=== PATIENT | male | born 1940 | race Caucasian/White ===

== ENCOUNTER → 2018-07-22 12:51 | Outpatient (CLI) | payer MEDICARE, SELFPAY ==
--- NOTE | 2018-07-22 12:54 | ECHOCS_ITS ---
Reason For Study: Afib/Flutter Procedure This was a 2D Doppler, Color Flow transthoracic echocardiogram. The study was technically difficult. Contrast injection was performed. Exam performed in department. Left Ventricle Normal LV size. Mild concentric left ventricular hypertrophy. Left ventricular systolic function is normal. The estimated ejection fraction is 53 %. Unable to assess diastolic dysfunction due to arrhythmia. No regional wall motion abnormalities noted. Right Ventricle Moderately dilated right ventricle. Moderate global right ventricular systolic dysfunction. Atria The left atrium is moderately enlarged. The right atrium is moderately enlarged. Mitral Valve Normal mitral valve. Mild-Moderate (1-2+) eccentric mitral valve insufficiency. Tricuspid Valve Normal tricuspid valve. Mild (1+) tricuspid valve insufficiency. Pulmonary artery systolic pressure is 36 mmHg. Aortic Valve Normal aortic valve. Trisinus/trileaflet aortic valve. Pulmonic Valve Normal pulmonic valve. Mild (1+) pulmonic valve insufficiency. Great Vessels Normal aortic root. The pulmonary artery is normal size. Normal inferior vena cava. Pericardium/Pleural No pericardial effusion. Medication 20 gauge I.V. with prn adaptor inserted into right arm. Diluted definity 6ml given slow IV push to enhance endocardial definition. MMode/2D Measurements & Calculations LVIDd: 4.5 cm IVSd: 1.3 cm LVOT diam: 2.0 cm LVIDs: 3.1 cm LVPWd: 1.2 cm LVOT area: 3.0 cm2 RVDd: 4.8 cm FS: 30.1 % Ao root diam: 3.9 cm LAV(MOD-bp): 114.5 ml LA dimension: 5.0 cm LAV(MOD-bp) Indexed: 52.7 ml/m2 LA A4 area: 29.6 cm2 LAV(MOD-sp2): 118.2 ml LAV(MOD-sp4): 106.7 ml RA A4 area: 28.8 cm2 Time Measurements MV dec time: 0.18 sec Doppler Measurements & Calculations MV E max yobani: 70.2 cm/sec Lat Peak E' Yobani: 10.0 cm/sec Med Peak E' Yobani: 7.1 cm/sec E/E' lat: 7.0 E/E' med: 9.8 MV V2 max: 76.1 cm/sec Ao V2 max: 85.5 cm/sec LV V1 max: 58.9 cm/sec MV max P.3 mmHg Ao max P.9 mmHg LV V1 max P.4 mmHg MV V2 mean: 35.8 cm/sec MIREYA(V,D): 2.1 cm2 MV mean P.65 mmHg MV V2 VTI: 15.2 cm MR max yobani: 543.5 cm/sec PA V2 max: 50.6 cm/sec PI dec slope: 149.4 cm/sec2 MR max P.2 mmHg MR mean yobani: 407.4 cm/sec MR mean P.6 mmHg MR VTI: 172.6 cm TR max yobani: 283.3 cm/sec TR max P.2 mmHg Interpretation Summary Normal LV size. Mild concentric left ventricular hypertrophy. Left ventricular systolic function is normal. The estimated ejection fraction is 53 %. Unable to assess diastolic dysfunction due to arrhythmia. Moderately dilated right ventricle. Moderate global right ventricular systolic dysfunction. Pulmonary artery systolic pressure is 36 mmHg. Compared to the previous the RV is enlarged. Contrast injection was performed. Ordering Physician: Joshua Bates Referring Physician: Joshua Bates Performed By: Aris Lafleur RCS
== END ==
PROVIDERS: Family Provider Family Medicine; PCP Family Medicine; Referring Provider Internal Medicine Cardiovascular Disease; Visit Provider Internal Medicine Cardiovascular Disease
DX: I48.1 Persistent atrial fibrillation (principal)
CPT/HCPCS: 93306; Q9957; A4216; C8929

== ENCOUNTER → 2019-01-12 14:07 | Outpatient (CLI) | payer MEDICARE, SELFPAY ==
[2019-01-12 13:20] VITALS: BMI 32.1
[2019-01-12 14:15] LABS: Bacteria 0 SEEN /hpf (None Seen); Mucous, Urine 0 SEEN /hpf (<or=2+); Red Blood Cells-Urine 0 SEEN /hpf (0-5); Squamous Epithelial Cells - UA 0 SEEN /hpf (0-5); White Blood Cells 0 SEEN /hpf (0-5)
[2019-01-12 15:48] LABS: Absolute Lymphocyte Count 1.26 X10^3/ul (0.83-4.51); Absolute Neutrophil Count 3.6 X10^3/uL (2.0-7.7); Basophil# 0.03 X10^3/uL; Basophil% 0.5 % (0-1); Eosinophil# 0.37 X10^3/uL; Hematocrit 47.7 % (40-54); Hemoglobin 16.3 g/dl (13.0-16.5); Lymphocyte # 1.26 X10^3/ul (4.0); Lymphocyte % 20.4 % (19-41); Mean Corp Hgb Conc 34.2 g/gl (32-36); Mean Corpuscular Hgb 32.3 pg (27.0-32.0); Mean Corpuscular Volume 94.6 fL (80-94); Mean Platelet Vol. 10.9 fl (6.2-12.0); Monocyte# 0.92 X10^3/uL; Monocyte% 14.9 % (0-10); Neutrophil % 58.2 % (47-70); POSITIVE COUNT NO; POSITIVE DIFFERENTIAL NO; POSITIVE MORPHOLOGY NO; Platelet Count 200 K/mm3 (150-450); RBC Distribution Width SD 48.1 fl (35.1-43.9); Red Blood Count 5.04 M/mm3 (4.6-6.2); White Blood Count 6.2 K/mm3 (4.4-11.0)
[2019-01-12 16:24] LABS: Anion Gap 9 (5-15); BUN 14 mg/dL (7-18); BUN/Creat Ratio 10.4 RATIO (10-20); Calcium,Total 9.1 mg/dL (8.5-10.1); Chloride 107 mmol/L (98-107); Creatinine, Serum 1.34 mg/dL (0.70-1.30); EST Glomerular Filtration Rate 54 mL/min (>60); Est Glom Filt Rate - Afr Amer 66 mL/min (>60); Glucose 71 mg/dL (74-106); Potassium 3.7 mmol/L (3.5-5.1); Sodium Level 143 mmol/L (136-145)
[2019-01-12 16:30] LABS: BNP,B-Type NATRIURETIC PEPTIDE 148.2 pg/mL (0-100)
[2019-01-12 16:39] LABS: Color, Urine Yellow (Yellow); Glucose, Dipstick Normal (Normal); Ketone-Dipstick Negative (Negative); Leukocyte Esterase-Dipstick 25 /ul (Negative); Nitrite-Dipstick Negative (Negative); Occult Blood-Urine Negative /ul (Negative); Protein-Dipstick Negative (Negative); Urine Bilirubin Dipstick Negative (Negative); Urine Clarity Clear (Clear); Urine Urobilinogen Normal (Normal)
== END ==
PROVIDERS: Family Provider Family Medicine; PCP Family Medicine; Referring Provider Nurse Practitioner Family; Visit Provider Nurse Practitioner Family
DX: I10 Essential (primary) hypertension (principal); R06.09 Other forms of dyspnea; R35.0 Frequency of micturition
CPT/HCPCS: 36415; 80048; 81001; 83880; 85025

== ENCOUNTER → 2019-02-03 09:23 | Outpatient (CLI) | payer MEDICARE, SELFPAY ==
[2019-01-12 13:20] VITALS: BMI 32.1
[2019-02-03 10:20] LABS: Anion Gap 6 (5-15); BUN 21 mg/dL (7-18); Calcium,Total 9.3 mg/dL (8.5-10.1); Chloride 103 mmol/L (98-107); EST Glomerular Filtration Rate 52 mL/min (>60); Est Glom Filt Rate - Afr Amer 63 mL/min (>60); Glucose 113 mg/dL (74-106); Potassium 3.2 mmol/L (3.5-5.1); Sodium Level 141 mmol/L (136-145)
== END ==
PROVIDERS: Nurse Practitioner Family; Family Provider Family Medicine; PCP Family Medicine; Referring Provider Internal Medicine Cardiovascular Disease; Visit Provider Internal Medicine Cardiovascular Disease
DX: I48.1 Persistent atrial fibrillation (principal)
CPT/HCPCS: 36415; 80048

== ENCOUNTER → 2019-02-22 09:32 | Outpatient (CLI) | payer MEDICARE, SELFPAY ==
[2019-01-12 13:20] VITALS: BMI 32.1
[2019-02-22 11:16] LABS: Anion Gap 6 (5-15); BUN 21 mg/dL (7-18); BUN/Creat Ratio 14.9 RATIO (10-20); Calcium,Total 9.1 mg/dL (8.5-10.1); Chloride 105 mmol/L (98-107); Creatinine, Serum 1.41 mg/dL (0.70-1.30); EST Glomerular Filtration Rate 51 mL/min (>60); Est Glom Filt Rate - Afr Amer 62 mL/min (>60); Glucose 91 mg/dL (74-106); Potassium 3.5 mmol/L (3.5-5.1); Sodium Level 144 mmol/L (136-145)
== END ==
PROVIDERS: Family Provider Family Medicine; PCP Family Medicine; Referring Provider Nurse Practitioner Family; Visit Provider Nurse Practitioner Family
DX: E87.6 Hypokalemia (principal)
CPT/HCPCS: 36415; 80048

== ENCOUNTER → 2019-03-08 09:18 | Outpatient (CLI) | payer MEDICARE, SELFPAY ==
[2019-01-12 13:20] VITALS: BMI 32.1
== END ==
PROVIDERS: Family Provider Family Medicine; PCP Family Medicine; Referring Provider Physician Assistant Medical; Visit Provider Physician Assistant Medical
DX: R00.0 Tachycardia, unspecified (principal)
CPT/HCPCS: 93225; 93226

== ENCOUNTER → 2019-04-16 14:17 | Outpatient (CLI) | payer MEDICARE, SELFPAY ==
[2019-01-12 13:20] VITALS: BMI 32.1
[2019-04-16 15:11] LABS: Absolute Lymphocyte Count 1.25 X10^3/ul (0.83-4.51); Absolute Neutrophil Count 3.4 X10^3/uL (2.0-7.7); Basophil# 0.02 X10^3/uL; Basophil% 0.3 % (0-1); Eosinophil# 0.44 X10^3/uL; Eosinophils% 7.5 % (0-5); Hematocrit 45.6 % (40-54); Hemoglobin 15.6 g/dl (13.0-16.5); Lymphocyte # 1.25 X10^3/ul (4.0); Lymphocyte % 21.4 % (19-41); Mean Corp Hgb Conc 34.2 g/gl (32-36); Mean Corpuscular Hgb 32.3 pg (27.0-32.0); Mean Corpuscular Volume 94.4 fL (80-94); Mean Platelet Vol. 10.1 fl (6.2-12.0); Monocyte# 0.72 X10^3/uL; Monocyte% 12.3 % (0-10); Neutrophil # 3.41 X10^3/uL (2.7-7.7); Neutrophil % 58.3 % (47-70); Platelet Count 204 K/mm3 (150-450); RBC Distribution Width CV 14.7 % (11.6-14.6); RBC Distribution Width SD 49.3 fl (35.1-43.9); Red Blood Count 4.83 M/mm3 (4.6-6.2); White Blood Count 5.9 K/mm3 (4.4-11.0)
[2019-04-16 15:15] LABS: Anion Gap 7 (5-15); BUN 18 mg/dL (7-18); BUN/Creat Ratio 13.8 RATIO (10-20); Calcium,Total 8.8 mg/dL (8.5-10.1); Chloride 110 mmol/L (98-107); EST Glomerular Filtration Rate 56 mL/min (>60); Est Glom Filt Rate - Afr Amer 68 mL/min (>60); Glucose 64 mg/dL (74-106); Potassium 4.2 mmol/L (3.5-5.1); Sodium Level 144 mmol/L (136-145)
[2019-04-16 15:25] LABS: BNP,B-Type NATRIURETIC PEPTIDE 112.3 pg/mL (0-100)
[2019-04-16 15:40] LABS: POSITIVE COUNT NO; POSITIVE DIFFERENTIAL NO; POSITIVE MORPHOLOGY NO
== END ==
PROVIDERS: Family Provider Family Medicine; PCP Family Medicine; Referring Provider Nurse Practitioner Family; Visit Provider Nurse Practitioner Family
DX: R06.09 Other forms of dyspnea (principal); I48.1 Persistent atrial fibrillation; I10 Essential (primary) hypertension; E78.5 Hyperlipidemia, unspecified
CPT/HCPCS: 36415; 80048; 83880; 85025

== ENCOUNTER 2020-10-26 14:41 | Outpatient (RCR) | payer MEDICARE, SELFPAY ==
[2020-06-19 14:24] VITALS: BMI 32.3
== END 2020-10-26 23:59 ==
LOC: IMMUN 14:41
PROVIDERS: PCP Family Medicine; Visit Provider Family Medicine
DX: Z23 Encounter for immunization (principal)
CPT/HCPCS: 0011A; 0012A; 91301

== ENCOUNTER → 2021-01-10 09:46 | Outpatient (CLI) | payer MEDICARE, SELFPAY ==
[2020-12-29 10:45] VITALS: BMI 31.1
== END ==
PROVIDERS: PCP Family Medicine; Referring Provider Nurse Practitioner Family; Visit Provider Nurse Practitioner Family
DX: R55 Syncope and collapse (principal); R42 Dizziness and giddiness; I48.19 Other persistent atrial fibrillation
CPT/HCPCS: 93225; 93226

== ENCOUNTER → 2021-01-16 11:24 | Outpatient (CLI) | payer MEDICARE, SELFPAY ==
[2021-01-16 10:47] VITALS: BMI 30.8
[2021-01-16 13:36] LABS: Anion Gap 5 (5-15); BUN 15 mg/dL (7-18); BUN/Creat Ratio 11.4 RATIO (10-20); Calcium,Total 9.6 mg/dL (8.5-10.1); Chloride 106 mmol/L (98-107); Creatinine, Serum 1.32 mg/dL (0.70-1.30); EST Glomerular Filtration Rate 55 mL/min (>60); Est Glom Filt Rate - Afr Amer 67 mL/min (>60); Glucose 76 mg/dL (74-106); Potassium 4.2 mmol/L (3.5-5.1); Sodium Level 141 mmol/L (136-145)
== END ==
PROVIDERS: PCP Family Medicine; Referring Provider Internal Medicine Cardiovascular Disease; Visit Provider Internal Medicine Cardiovascular Disease
DX: I48.19 Other persistent atrial fibrillation (principal)
CPT/HCPCS: 36415; 80048

== ENCOUNTER → 2021-02-05 12:59 | Outpatient (CLI) | payer MEDICARE, SELFPAY ==
[2021-01-16 10:47] VITALS: BMI 30.8
--- NOTE | 2021-02-05 13:02 | ECHOCS_ITS ---
Reason For Study: Afib, Aflutter Procedure This was a 2D Doppler, Color Flow transthoracic echocardiogram. Contrast injection was performed. Exam performed in department. Left Ventricle Normal LV size. Mild concentric left ventricular hypertrophy. Left ventricular systolic function is normal. The estimated ejection fraction is 65 %. No regional wall motion abnormalities noted. Right Ventricle Normal RV size. Normal systolic function. Atria The left atrium is moderately enlarged. The right atrium is mildly enlarged. Mitral Valve Normal mitral valve. Tricuspid Valve Normal tricuspid valve. Mild (1+) tricuspid valve insufficiency. Pulmonary artery systolic pressure is 32 mmHg. Aortic Valve Trisinus/trileaflet aortic valve. Pulmonic Valve Normal pulmonic valve. Great Vessels Normal aortic root. The pulmonary artery is normal size. Normal inferior vena cava. Pericardium/Pleural No pericardial effusion. Medication Diluted definity 4ml given slow IV push to enhance endocardial definition. MMode/2D Measurements & Calculations LVIDd: 3.8 cm IVSd: 1.3 cm Ao root diam: 3.5 cm LVIDs: 2.7 cm LVPWd: 1.2 cm RVDd: 4.2 cm FS: 28.6 % LAV(MOD-bp): 107.1 ml LVAd ap4: 29.8 cm2 SV(MOD-sp4): 47.3 ml LAV(MOD-bp) Indexed: 50.5 ml/m2 LVLd ap4: 7.8 cm LAV(MOD-sp2): 91.0 ml EDV(MOD-sp4): 97.8 ml LAV(MOD-sp4): 113.7 ml EDV(sp4-el): 96.7 ml LVAs ap4: 20.6 cm2 LVLs ap4: 7.4 cm ESV(MOD-sp4): 50.4 ml ESV(sp4-el): 48.8 ml EF(MOD-sp4): 48.4 % EF(sp4-el): 49.5 % SV(sp4-el): 47.8 ml LA A4 area: 31.6 cm2 LA dimension(2D): 4.7 cm RA A4 area: 25.3 cm2 Doppler Measurements & Calculations MV E max bryce: 74.4 cm/sec Ao V2 max: 92.7 cm/sec LV V1 max: 57.1 cm/sec Ao max P.4 mmHg LV V1 max P.3 mmHg Ao V2 mean: 72.5 cm/sec Ao mean P.2 mmHg Ao V2 VTI: 14.1 cm PA V2 max: 61.8 cm/sec TR max bryce: 265.8 cm/sec TR max P.3 mmHg ECHO/Echo Complete W/ Contrast Interpretation Summary Normal LV size. Mild concentric left ventricular hypertrophy. Left ventricular systolic function is normal. The left atrium is moderately enlarged. Contrast injection was performed. Ordering Physician: Joshua Bates Referring Physician: Navneet Alvarado Performed By: Kelli Ingram, VARUN, RVT
== END ==
PROVIDERS: PCP Family Medicine; Referring Provider Internal Medicine Cardiovascular Disease; Visit Provider Internal Medicine Cardiovascular Disease
DX: I48.19 Other persistent atrial fibrillation (principal); I48.92 Unspecified atrial flutter
CPT/HCPCS: 93306; Q9957; A4216; C8929

== ENCOUNTER 2021-03-25 11:57 | Inpatient (IN) | payer MEDICARE, SELFPAY ==
[2021-01-16 10:47] VITALS: BMI 30.8
[2021-03-25] VITALS (26 sets, daily range): BP systolic 97–155; BP diastolic 59–112; PULSE 61–125; RESP 17–25; TEMP 36.3–37.3; O2SAT 92–98; BMI 31.1; BMI 30.7
--- NOTE | 2021-03-25 12:14 | CT_ITS ---
STUDY: CT BRAIN WITHOUT CONTRAST REASON FOR EXAM: Male, 81 years old. Confusion, fall RADIATION DOSAGE (If Supplied By Facility): CTDIvol = ( 44.99 ) mGy, DLP = ( 863.60 ) mGycm TECHNIQUE: Transaxial CT imaging of the brain was performed without administration of intravenous contrast material. Individualized dose optimization techniques were used for this CT. COMPARISON: March 21, 2012 FINDINGS: Normal soft tissue structures. Normal calvarium. There is moderate cerebral atrophy with widening of the extra-axial spaces and ventricular dilatation. There are areas of decreased attenuation within the white matter tracts of the supratentorial brain, consistent with microvascular disease changes. Normal basal ganglia and thalami. Normal brainstem. Normal cerebellum. There is no intracranial hemorrhage. There are no findings of an acute ischemic infarction. Mucosal thickening with retention cysts or polyps of the right maxillary sinus CT/Brain/Head without Contrast IMPRESSION: Chronic involutional changes of the brain. Electronically Signed: Amadou Deal MD at 14:54 EDT , Service support ,
--- NOTE | 2021-03-25 12:15 | RAD_ITS ---
HISTORY: low bp EXAMINATION/TECHNIQUE: XR Chest 1 View: Portable upright AP chest x-ray COMPARISON: 04/18/14 FINDINGS: LINES/DEVICES: None. LUNGS: Increasing elevation right hemidiaphragm with overall low lung volumes. No consolidation or pleural effusion. MEDIASTINUM AND CARDIOVASCULAR STRUCTURES: Cardiac silhouette not enlarged. Central airways and mediastinal contour are unremarkable. BONES AND SOFT TISSUES: No acute bony abnormalities. RAD/Chest 1 View (Portable) IMPRESSION: No radiographic evidence of acute cardiopulmonary disease. at 1540 Reported and signed by: Conrad Randolph MD Electronically Signed: Conrad Randolph MD at 15:39 EDT Tel , Service support ,
--- NOTE | 2021-03-25 12:15 | EKG12_ITS ---
Test Reason : Blood Pressure : / mmHG Vent. Rate : 124 BPM Atrial Rate : 248 BPM P-R Int : 000 ms QRS Dur : 092 ms QT Int : 396 ms P-R-T Axes : 000 008 -58 degrees QTc Int : 568 ms Atrial flutter with variable A-V block with premature ventricular or aberrantly conducted complexes Nonspecific ST and T wave abnormality Abnormal ECG Confirmed by ADEBAYO MIX, AMBER ([id number]), editorial cartoonist ALINE ZAMORA ([id number]) on 03/26/2021 11:19:28 AM Referred By: MARY CARMEN Confirmed By:AMBER FIORE MD
--- NOTE | 2021-03-25 12:27 | EDS_ITS ---
HPI History of Present Illness Chief Complaint: Confusion Onset/Context/Timing Onset: Yesterday Context: Gradual Onset Timing: Continuous Quality: Confusion Current Severity: Moderate Maximum Severity: Moderate Narrative Narrative: noticed patient was confused yesterday evening. He has been having urinary urgency for about the past week, he had a kidney infection prior to that, and a repeat urinalysis almost 1 week ago that they were told was negative. Overnight after noticed he was disoriented more than usual, he has dementia, he had a fall in the middle of the night. She does not think he injured anything, but he continues to be persistently confused today. [facility] Medical History (Updated 03/25/21 @ 15:[address] Amadou Kerns MD) Atrial fibrillation Body mass index (bmi) 29.0-29.9, adult Bradycardia Depression Essential (primary) hypertension Hyperlipidemia Hypertension Hyperthyroidism Obesity Persistent atrial fibrillation Right ventricular dilation, secondary Right ventricular systolic dysfunction Syncope TIA (transient ischemic attack) Vascular dementia Home Medications mirtazapine 30 mg tablet 30 mg PO QHS 12/15/17 [History Last Taken Unknown] cholecalciferol (vitamin D3) 50 mcg (2,000 unit) capsule 2,000 unit PO DAILY 07/14/18 [History Last Taken Unknown] potassium chloride 20 mEq tablet,extended release 40 meq PO DAILY #90 tab 02/24/19 [Rx Last Taken Unknown] citalopram 40 mg tablet 40 mg PO DAILY #1 tab 03/02/19 [Rx Last Taken Unknown] compression stockings #2 ea 04/16/19 [Rx Last Taken Unknown] diltiazem HCl 180 mg capsule,extended release 24 hr 180 mg PO DAILY #90 cap 11/22/20 [Rx Last Taken Unknown] famotidine 10 mg tablet 10 mg PO DAILY PRN 12/29/20 [History Last Taken Unknown] memantine 10 mg tablet 10 mg PO BID tablet 12/29/20 [History Last Taken Unknown] apixaban 5 mg tablet 5 mg PO BID #180 tab 01/15/21 [Rx Last Taken Unknown] cyanocobalamin (vitamin B-12) [Vitamin B-12] 1,000 mcg PO DAILY 03/25/21 [History Last Taken Unknown] metoprolol succinate 100 mg PO DAILY 03/25/21 [History Last Taken Unknown] Allergy/AdvReac Type Severity Reaction Status Date / Time amiodarone AdvReac Severe Hyperthyroi Verified 03/25/21 11:58 dism Family History Mother Diabetes CVA (cerebral vascular accident) Father Myocardial infarction CAD (coronary artery disease) Sister Diabetes Son Hypertension Daughter Thyroid disorder hyperthyroid Diabetes Daughter Diabetes Daughter Thyroid disorder hypothyroid Surgical History History of hemorrhoidectomy History of tonsillectomy and adenoidectomy Social History Smoking Status: Never smoker how long ago did patient quit smokin alcohol intake: current alcohol intake frequency: holidays/special occasions only Alcohol type: wine substance use type: does not use caffeine: Yes Type: coffee Number of servings: 3 what type of physical activity do you participate in: none seatbelt use: always do you feel safe at home: Yes ROS ROS ED Review of Systems ROS Unobtainable: due to mental status and other Details: very confused, but follows commands Constitutional Constitutional ED: Denies chills or fever(s) Eyes Eyes: Denies change in vision or diplopia ENT ENT ED: Denies rhinorrhea or sore throat Cardiovascular Cardiovascular: Denies chest pain or palpitations Respiratory/Chest Respiratory/Chest: Denies cough or dyspnea Gastrointestinal Gastrointestinal: Denies abdominal pain, diarrhea, nausea or vomiting Genitourinary Genitourinary ED: Denies dysuria or hematuria Musculoskeletal Musculoskeletal: Denies back pain or neck pain Integumentary Denies abscess or rash Neurologic Neurologic: Denies headache(s), paresthesias or weakness Psychiatric Psychiatric: Denies anxiety or suicidal thoughts EXAM Physical Exam Const Vital Signs: 03/25/21 11:59 03/25/21 12:15 03/25/21 14:52 Temperature 99.1 F 99.1 F Temperature Source Oral Oral Pulse Rate 125 H 125 H Respiratory Rate 18 Blood Pressure 97/73 Blood Pressure Mean 81 Pulse Ox 94 Oxygen Delivery Method Room Air Room Air Positive well nourished and well developed General Appearance ED: well developed and NAD HEENT Reports moist mucous membranes normocephalic and atraumatic Eyes PERRL and EOMs intact bilaterally Neck full ROM, no lymphadenopathy, supple and no JVD Chest Wall inspection of chest normal and palpation of chest normal Resp normal respiratory effort and clear to auscultation bilaterally Cardio regular rate, regular rhythm and no murmurs Rate: tachycardic GI non-tender and non-distended Auscultation: normoactive bowel sounds Palpation: soft Back/Spine no CVA tenderness General Back: other FROM Extremity normal to inspection General Extremety ED: Negative for edema, pulses abnormal or tenderness General Extremity: Negative for edema or pulses abnormal Neuro CN's II-XII intact bilaterally and no sensory deficits noted [place] Coma Scale: document GCS findings Spontaneous Obeys Commands Confused 14 Sensorium / Orientation: awake, alert, oriented to person and confused; Negative for oriented to place or oriented to time Motor Exam: strength 5/5 throughout Skin no rashes or lesions noted and no wounds MDM MDM MDM Narrative Medical decision making narrative: Patient appears to be in A. fib with RVR versus rapid a flutter. states he has a known history of that which I see in his medical records, and he is on Eliquis for that as well. The rest of his work-up is unremarkable including his urine which shows no evidence of infection. After IV fluids, his borderline hypotension resolved and I was able to give him Cardizem 10 mg bolus to try to slow his heart rate down which did not improve with the IV fluids. His heart rate did not improve, his blood pressure remained 118, so he was given another dose along with a Cardizem drip, my suspicion is that this a flutter/atrial fibrillation is related to his symptoms. Discussed with cardiology and hospitalist for admission. Lab Data Attestation: I reviewed the patient's lab results. Labs: Laboratory Results - last 24 hr 03/25/21 03/25/21 03/25/21 12:17 12:17 12:17 WBC 7.7 RBC 4.50 L Hgb 14.6 Hct 43.8 MCV 97.3 H MCH 32.4 H MCHC 33.3 RDW Std Deviation 47.4 H RDW Coeff of Monica 13.2 Plt Count 221 MPV 9.7 Immature Gran % (Auto) 0.300 Neut % (Auto) 77.5 H Lymph % (Auto) 8.2 L [place] % (Auto) 12.3 H Eos % (Auto) 1.3 Baso % (Auto) 0.4 Absolute Neuts (auto) 6.0 Absolute Lymphs (auto) 0.63 L Nucleated RBC % 0 PT INR APTT Sodium 141 Potassium 3.8 Chloride 107 Carbon Dioxide 27.0 Anion Gap 7 BUN 15 Creatinine 1.46 H Estim Creat Clear Calc 39.58 Est GFR (MDRD) Af Amer 59 L Est GFR (MDRD) Non-Af 49 L BUN/Creatinine Ratio 10.3 Glucose 94 Lactic Acid 1.8 Calcium 8.4 L Total Bilirubin 1.50 H AST 16 ALT 20 Alkaline Phosphatase 100 Troponin I 0.116 H Total Protein 6.6 Albumin 3.2 Globulin 3.4 Albumin/Globulin Ratio 0.9 Urine Color Urine Clarity Urine pH Ur Specific [place] Urine Protein Urine Glucose (UA) Urine Ketones Urine Occult Blood Urine Nitrite Urine Bilirubin Urine Urobilinogen Ur Leukocyte Esterase Urine RBC Urine WBC Ur Squamous Epith Cells Urine Bacteria Hyaline Casts Urine Mucus 03/25/21 03/25/21 13:42 13:52 WBC RBC Hgb Hct MCV MCH MCHC RDW Std Deviation RDW Coeff of Monica Plt Count MPV Immature Gran % (Auto) Neut % (Auto) Lymph % (Auto) [place] % (Auto) Eos % (Auto) Baso % (Auto) Absolute Neuts (auto) Absolute Lymphs (auto) Nucleated RBC % PT 17.0 H INR 1.5 APTT 36.3 H Sodium Potassium Chloride Carbon Dioxide Anion Gap BUN Creatinine Estim Creat Clear Calc Est GFR (MDRD) Af Amer Est GFR (MDRD) Non-Af BUN/Creatinine Ratio Glucose Lactic Acid Calcium Total Bilirubin AST ALT Alkaline Phosphatase Troponin I Total Protein Albumin Globulin Albumin/Globulin Ratio Urine Color Yellow Urine Clarity Clear Urine pH 6.5 Ur Specific [place] 1.010 Urine Protein 15 H Urine Glucose (UA) Normal Urine Ketones Negative Urine Occult Blood Negative Urine Nitrite Negative Urine Bilirubin Negative Urine Urobilinogen Normal Ur Leukocyte Esterase Negative Urine RBC 0 SEEN Urine WBC 0 SEEN Ur Squamous Epith Cells 0-5 SEEN Urine Bacteria RARE Hyaline Casts 0-5 SEEN Urine Mucus 0 SEEN Radiography Chest X-Ray - ED: 1 View, Read by ED Physician, Chronic Changes and No Infiltrates Diagnostic Testing: Radiology Impression Brain CT 03/25/21 12:14 IMPRESSION: Chronic involutional changes of the brain. Electronically Signed: Amadou Deal MD at 14:54 EDT , Service support , EKG Initial EKG: Attestation: I personally reviewed and interpreted this EKG as follows: Interpretation: No Acute Injury Pattern, Atrial Fibrillation (and/or aflutter w/ frequent vent ectopy) and Non-Specific ST Changes Prior EKG tracings: available for review Prior: Changed (nonspecific ST-T abn are different than prior; hx Afib) Discharge Plan Dx/Rx/DC Orders Clinical Impression: Atrial flutter with rapid ventricular response, Delirium due to another medical condition, Dementia Disposition Disposition: Acute Care Hospital [facility]
[2021-03-25 12:28] LABS: Absolute Lymphocyte Count 0.63 X10^3/uL (0.83-4.51); Basophil# 0.03 X10^3/uL; Basophil% 0.4 % (0-1); Eosinophils% 1.3 % (0-5); Hematocrit 43.8 % (40-54); Hemoglobin 14.6 g/dL (13.0-16.5); Lymphocyte # 0.63 X10^3/ul (0.83-4.51); Lymphocyte % 8.2 % (19-41); Mean Corp Hgb Conc 33.3 g/dL (32-36); Mean Corpuscular Hgb 32.4 pg (27.0-32.0); Mean Corpuscular Volume 97.3 fL (80-94); Mean Platelet Vol. 9.7 fl (6.2-12.0); Monocyte# 0.95 X10^3/uL; Monocyte% 12.3 % (0-10); NRBC Flagged by Analyzer 0 % (0-5); Neutrophil # 5.98 X10^3/uL (2.7-7.7); Neutrophil % 77.5 % (47-70); Platelet Count 221 K/mm3 (150-450); RBC Distribution Width CV 13.2 % (11.6-14.6); RBC Distribution Width SD 47.4 fl (35.1-43.9); White Blood Count 7.7 K/mm3 (4.4-11.0)
[2021-03-25 12:43] LABS: ALB/GLOB Ratio 0.9 RATIO (0.9-2.4); AST(SGOT) 16 U/L (15-37); Alanine Aminotransfer ALT/SGPT 20 U/L (16-61); Albumin, Serum 3.2 g/dL (3.2-5.0); Alkaline Phosphatase 100 U/L (45-117); Anion Gap 7 (5-15); BUN 15 mg/dL (7-18); BUN/Creat Ratio 10.3 RATIO (10-20); Calcium,Total 8.4 mg/dL (8.5-10.1); Chloride 107 mmol/L (98-107); Creatinine, Serum 1.46 mg/dL (0.70-1.30); EST Glomerular Filtration Rate 49 mL/min (>60); Est Glom Filt Rate - Afr Amer 59 mL/min (>60); Estimated Creatinine Clearance 39.58 ml/min; Globulin 3.4 g/dL (2.2-4.2); Glucose 94 mg/dL (74-106); Potassium 3.8 mmol/L (3.5-5.1); Protein, Total 6.6 g/dL (6.4-8.2); Sodium Level 141 mmol/L (136-145)
[2021-03-25 12:48] LABS: Lactic Acid 1.8 mmol/L (0.4-1.9)
[2021-03-25 14:01] LABS: Mucous, Urine 0 SEEN /hpf (<or=2+); Red Blood Cells-Urine 0 SEEN /hpf (0-5); White Blood Cells 0 SEEN /hpf (0-5)
[2021-03-25 14:03] LABS: Color, Urine Yellow (Yellow); Glucose, Dipstick Normal (Normal); Ketone-Dipstick Negative (Negative); Leukocyte Esterase-Dipstick Negative /ul (Negative); Nitrite-Dipstick Negative (Negative); Occult Blood-Urine Negative /ul (Negative); Protein-Dipstick 15 mg/dl (Negative); Urine Bilirubin Dipstick Negative (Negative); Urine Clarity Clear (Clear); Urine Urobilinogen Normal (Normal); Urine pH 6.5 (5.0 - 8.0)
[2021-03-25] MEDS: dilTIAZem 25 MG/5 ML Vial 10 MG IV BOLUS ×2 (14:05→16:05)
[2021-03-25 14:12] LABS: International Normalized Ratio 1.5; Partial Thromboplast Time 36.3 Seconds (24.1-36.2)
[2021-03-25 14:14] LABS: Bacteria RARE /hpf (None Seen); Hyaline Cast 0-5 SEEN /lpf (0-5); Squamous Epithelial Cells - UA 0-5 SEEN /hpf (0-5)
--- NOTE | 2021-03-25 15:42 | PCM.HP.STD ---
HPI - General General Date of Admission: 03/25/21 Date of Service: 03/25/21 Chief Complaint: Confusion HPI Narrative CAMMY MENDIOLA, is a 81 M with past medical history significant for for persistent A. fib on systemic anticoagulation with apixaban who was found to be confused by the on the afternoon of his presentation. thought patient was having a stroke she therefore called the squad and patient was brought to the emergency department. Patient did not have any recollection of events leading to him being brought to the ED. He has underlying history of dementia. In the emergency occupational therapy department chair CT was negative for acute CVA. Patient was also found to be hypotensive with systolic blood pressure in the 70s he did respond to IV fluid. Patient was found to be in A. fib with RVR started on Cardizem drip and admitted to a monitored bed for further management [facility] Medical History Atrial fibrillation Body mass index (bmi) 29.0-29.9, adult Bradycardia Depression Essential (primary) hypertension Hyperlipidemia Hypertension Hyperthyroidism Obesity Persistent atrial fibrillation Right ventricular dilation, secondary Right ventricular systolic dysfunction Syncope TIA (transient ischemic attack) Vascular dementia Home Medications mirtazapine 30 mg tablet 30 mg PO QHS 12/15/17 [History Last Taken Unknown] cholecalciferol (vitamin D3) 50 mcg (2,000 unit) capsule 2,000 unit PO DAILY 07/14/18 [History Last Taken Unknown] potassium chloride 20 mEq tablet,extended release 40 meq PO DAILY #90 tab 02/24/19 [Rx Last Taken Unknown] citalopram 40 mg tablet 40 mg PO DAILY #1 tab 03/02/19 [Rx Last Taken Unknown] compression stockings #2 ea 04/16/19 [Rx Last Taken Unknown] diltiazem HCl 180 mg capsule,extended release 24 hr 180 mg PO DAILY #90 cap 11/22/20 [Rx Last Taken Unknown] famotidine 10 mg tablet 10 mg PO DAILY PRN 12/29/20 [History Last Taken Unknown] memantine 10 mg tablet 10 mg PO BID tablet 12/29/20 [History Last Taken Unknown] apixaban 5 mg tablet 5 mg PO BID #180 tab 01/15/21 [Rx Last Taken Unknown] cyanocobalamin (vitamin B-12) [Vitamin B-12] 1,000 mcg PO DAILY 03/25/21 [History Last Taken Unknown] metoprolol succinate 100 mg PO DAILY 03/25/21 [History Last Taken Unknown] Allergy/AdvReac Type Severity Reaction Status Date / Time amiodarone AdvReac Severe Hyperthyroi Verified 03/25/21 11:58 dism Family History Mother Diabetes CVA (cerebral vascular accident) Father Myocardial infarction CAD (coronary artery disease) Sister Diabetes Son Hypertension Daughter Thyroid disorder hyperthyroid Diabetes Daughter Diabetes Daughter Thyroid disorder hypothyroid Surgical History History of hemorrhoidectomy History of tonsillectomy and adenoidectomy Social History Smoking Status: Never smoker how long ago did patient quit smokin alcohol intake: current alcohol intake frequency: holidays/special occasions only Alcohol type: wine substance use type: does not use caffeine: Yes Type: coffee Number of servings: 3 what type of physical activity do you participate in: none seatbelt use: always do you feel safe at home: Yes ROS Review of Systems ROS Unobtainable: other Details: Not reliable due to patient's underlying dementia Vital Signs Vital Signs Vital Signs: 03/25/21 11:59 03/25/21 12:15 03/25/21 14:52 Temperature 99.1 F 99.1 F Temperature Source Oral Oral Pulse Rate 125 H 125 H Respiratory Rate 18 Blood Pressure 97/73 Blood Pressure Mean 81 Pulse Ox 94 Oxygen Delivery Method Room Air Room Air Weight Weight: 98.4 kg Body Mass Index (BMI) 31.1 Physical Exam Narrative GENERAL: cooperative HEENT: Atraumatic; EYES; Anicteric, Normal Conjunctiva NECK; supple, normal thyroid, RESPIRATORY: Diminished to auscultation CARDIOVASCULAR: Irregular S1-S2, tachycardic GI: soft, normoactive bowel sounds, : No Renal angle tenderness; EXTREMITIES: No edema, no clubbing, MUSCULOSKELETAL: no muscle waisting NEURO: Awake; no lateralizing signs. SKIN: No Rash PSYCH; Flat affect Results Lab / Micro Data Result Diagrams: 03/25/21 12:17 03/25/21 12:17 Labs: Laboratory Results - last 24 hr 03/25/21 03/25/21 03/25/21 12:17 12:17 12:17 WBC 7.7 RBC 4.50 L Hgb 14.6 Hct 43.8 MCV 97.3 H MCH 32.4 H MCHC 33.3 RDW Std Deviation 47.4 H RDW Coeff of Monica 13.2 Plt Count 221 MPV 9.7 Immature Gran % (Auto) 0.300 Neut % (Auto) 77.5 H Lymph % (Auto) 8.2 L [place] % (Auto) 12.3 H Eos % (Auto) 1.3 Baso % (Auto) 0.4 Absolute Neuts (auto) 6.0 Absolute Lymphs (auto) 0.63 L Nucleated RBC % 0 PT INR APTT Sodium 141 Potassium 3.8 Chloride 107 Carbon Dioxide 27.0 Anion Gap 7 BUN 15 Creatinine 1.46 H Estim Creat Clear Calc 39.58 Est GFR (MDRD) Af Amer 59 L Est GFR (MDRD) Non-Af 49 L BUN/Creatinine Ratio 10.3 Glucose 94 Lactic Acid 1.8 Calcium 8.4 L Total Bilirubin 1.50 H AST 16 ALT 20 Alkaline Phosphatase 100 Troponin I 0.116 H Total Protein 6.6 Albumin 3.2 Globulin 3.4 Albumin/Globulin Ratio 0.9 Urine Color Urine Clarity Urine pH Ur Specific [place] Urine Protein Urine Glucose (UA) Urine Ketones Urine Occult Blood Urine Nitrite Urine Bilirubin Urine Urobilinogen Ur Leukocyte Esterase Urine RBC Urine WBC Ur Squamous Epith Cells Urine Bacteria Hyaline Casts Urine Mucus 03/25/21 03/25/21 13:42 13:52 WBC RBC Hgb Hct MCV MCH MCHC RDW Std Deviation RDW Coeff of Monica Plt Count MPV Immature Gran % (Auto) Neut % (Auto) Lymph % (Auto) [place] % (Auto) Eos % (Auto) Baso % (Auto) Absolute Neuts (auto) Absolute Lymphs (auto) Nucleated RBC % PT 17.0 H INR 1.5 APTT 36.3 H Sodium Potassium Chloride Carbon Dioxide Anion Gap BUN Creatinine Estim Creat Clear Calc Est GFR (MDRD) Af Amer Est GFR (MDRD) Non-Af BUN/Creatinine Ratio Glucose Lactic Acid Calcium Total Bilirubin AST ALT Alkaline Phosphatase Troponin I Total Protein Albumin Globulin Albumin/Globulin Ratio Urine Color Yellow Urine Clarity Clear Urine pH 6.5 Ur Specific [place] 1.010 Urine Protein 15 H Urine Glucose (UA) Normal Urine Ketones Negative Urine Occult Blood Negative Urine Nitrite Negative Urine Bilirubin Negative Urine Urobilinogen Normal Ur Leukocyte Esterase Negative Urine RBC 0 SEEN Urine WBC 0 SEEN Ur Squamous Epith Cells 0-5 SEEN Urine Bacteria RARE Hyaline Casts 0-5 SEEN Urine Mucus 0 SEEN Radiology Impression Brain CT 03/25/21 12:14 IMPRESSION: Chronic involutional changes of the brain. Electronically Signed: Amadou Deal MD at 14:54 EDT , Service support , Chest X-Ray 03/25/21 12:15 IMPRESSION: No radiographic evidence of acute cardiopulmonary disease. at 1540 Reported and signed by: Conrad Randolph MD Electronically Signed: Conrad Randolph MD at 15:39 EDT Tel , Service support , Assessment & Plan Assessment/Plan (1) Dementia: (2) Atrial flutter with rapid ventricular response: (3) Persistent atrial fibrillation: (4) Hyperlipidemia: QUALIFIERS: Hyperlipidemia type: mixed hyperlipidemia Qualified Code(s): E78.2 - Mixed hyperlipidemia (5) Essential (primary) hypertension: (6) Delirium due to another medical condition: PLAN: Patient is an 81-year-old gentleman with underlying history of persistent A. fib admitted with altered mental status found to be in A. fib with RVR with hypotension 1. A. fib with RVR ?Admitted to a monitored bed started on Cardizem drip which is being titrated to keep heart rate less than 100 2. Transient hypotension ?Patient did respond to IV fluids 3. Elevated troponin ?Do suspect demand ischemia from patient's uncontrolled heart rate admitted to monitored bed serial cardiac enzymes started 4. Acute delirium ?Patient is known to have dementia. Per patient's patient is back to baseline 5. Essential hypertension ?Presented with transient hypotension which did respond to IV fluid 6. Chronic kidney disease stage III ?Patient kidney function at baseline 7. DVT prophylaxis ?On apixaban Advance planning; did discuss with the patient and family regarding advanced directives as well as CODE STATUS. Did explain the various scenarios involved ( FULL CODE, DNR CCA, DNR CCA with no intubation, and DNR CC and what each meant) patient elected to be DNR CCA no intubation. Order was placed. Time spent on discussion 18 minutes. Charges/Coding Visit Charges OBSV E&M: 48234 Initial observation care L3 Procedures Hospitalists Procedures: 64204 Advncd Care Plan 30 Min
[2021-03-25] MEDS: 0.9% Saline Lock 10 ML Syringe IV (17:14)
[2021-03-25] MEDS: 0.9% Normal Saline 1,000 ML 75 ML IV (17:19)
[2021-03-25] MEDS: Digoxin 250 MCG/ML Ampul 1000 MCG IV (20:02)
[2021-03-25] MEDS: Mirtazapine 30 MG Tablet PO (22:42)
[2021-03-25] MEDS: APIXABAN 5 MG TABLET PO (22:42)
[2021-03-25] MEDS: Memantine Hydrochloride 10 MG Tablet PO (22:42)
[2021-03-26] VITALS (36 sets, daily range): BP systolic 107–179; BP diastolic 57–127; PULSE 61–126; RESP 14–25; TEMP 36.2–36.9; O2SAT 89–95
[2021-03-26 03:50] LABS: Absolute Lymphocyte Count 0.89 X10^3/uL (0.83-4.51); Absolute Neutrophil Count 5.4 X10^3/uL (2.0-7.7); Basophil# 0.03 X10^3/uL; Basophil% 0.4 % (0-1); Eosinophil# 0.31 X10^3/uL; Hemoglobin 14.9 g/dL (13.0-16.5); Lymphocyte # 0.89 X10^3/ul (0.83-4.51); Lymphocyte % 11.6 % (19-41); Mean Corp Hgb Conc 33.1 g/dL (32-36); Mean Corpuscular Hgb 32.2 pg (27.0-32.0); Mean Corpuscular Volume 97.2 fL (80-94); Mean Platelet Vol. 9.5 fl (6.2-12.0); Monocyte# 0.95 X10^3/uL; Monocyte% 12.4 % (0-10); NRBC Flagged by Analyzer 0 % (0-5); Neutrophil # 5.44 X10^3/uL (2.7-7.7); Neutrophil % 71.1 % (47-70); Platelet Count 209 K/mm3 (150-450); RBC Distribution Width CV 13.2 % (11.6-14.6); RBC Distribution Width SD 47.3 fl (35.1-43.9); Red Blood Count 4.63 M/mm3 (4.6-6.2); White Blood Count 7.7 K/mm3 (4.4-11.0)
[2021-03-26 04:03] LABS: Anion Gap 7 (5-15); BUN 14 mg/dL (7-18); BUN/Creat Ratio 13.6 RATIO (10-20); Calcium,Total 8.4 mg/dL (8.5-10.1); Chloride 108 mmol/L (98-107); Creatinine, Serum 1.03 mg/dL (0.70-1.30); EST Glomerular Filtration Rate 73 mL/min (>60); Est Glom Filt Rate - Afr Amer 89 mL/min (>60); Estimated Creatinine Clearance 54.34 ml/min; Glucose 99 mg/dL (74-106); Magnesium 2.2 mg/dL (1.6-2.6); Potassium 3.5 mmol/L (3.5-5.1); Sodium Level 142 mmol/L (136-145)
[2021-03-26] MEDS: 0.9% Normal Saline 1,000 ML 75 ML IV ×2 (05:05→16:34)
[2021-03-26] MEDS: 0.9% Saline Lock 10 ML Syringe IV ×2 (05:05→10:33)
[2021-03-26] MEDS: Digoxin 250 MCG/ML Ampul IV (05:07)
--- NOTE | 2021-03-26 09:27 | PCM.CONS.C ---
Assessment & Plan Assessment/Plan (1) Atrial flutter with rapid ventricular response: PLAN: He does have atrial fibrillation flutter with a rapid response rate. I would recommend that we continue him on intravenous diltiazem. I would suggest an additional bolus of intravenous diltiazem to help control his rate better. For now he will remain on the anticoagulation. We may need to add some amiodarone for rate control. An echocardiogram performed in February demonstrated preserved left ventricular systolic function. I do not think that we need to repeat this at this particular time. (2) Essential (primary) hypertension: PLAN: His blood pressure appears to be under good control at this time and I would not recommend we make any changes with regard to the above. Thank you for allowing me to participate in the care of your patient. Please don't hesitate to call if any issues arise. HPI Consult Data Date of Consult: 03/26/21 HPI Narrative HPI Narrative: CAMMY MENDIOLA, is a 81 M who presented to the emergency room after his noted that he was confused. He does have a history of chronic persistent atrial fibrillation with a controlled ventricular response rate, hypertension, and a previous history of syncope. In the emergency room he was noted to be hypotensive and he did respond to intravenous fluids. He was noted to remain tachycardic and was eventually started on intravenous diltiazem. Cardiology was called to see him this morning due to the same as well as mildly elevated troponin. He denies any chest pain or shortness of breath or paroxysmal nocturnal dyspnea he has not had any dizziness or diaphoresis. He does remain mildly confused. [facility] Medical History Atrial fibrillation Body mass index (bmi) 29.0-29.9, adult Bradycardia Depression Essential (primary) hypertension Hyperlipidemia Hypertension Hyperthyroidism Obesity Persistent atrial fibrillation Right ventricular dilation, secondary Right ventricular systolic dysfunction Syncope TIA (transient ischemic attack) Vascular dementia Home Medications mirtazapine 30 mg tablet 30 mg PO QHS 12/15/17 [History Last Taken Unknown] cholecalciferol (vitamin D3) 50 mcg (2,000 unit) capsule 2,000 unit PO DAILY 07/14/18 [History Last Taken Unknown] potassium chloride 20 mEq tablet,extended release 40 meq PO DAILY #90 tab 02/24/19 [Rx Last Taken Unknown] citalopram 40 mg tablet 40 mg PO DAILY #1 tab 03/02/19 [Rx Last Taken Unknown] compression stockings #2 ea 04/16/19 [Rx Last Taken Unknown] diltiazem HCl 180 mg capsule,extended release 24 hr 180 mg PO DAILY #90 cap 11/22/20 [Rx Last Taken Unknown] famotidine 10 mg tablet 10 mg PO DAILY PRN 12/29/20 [History Last Taken Unknown] memantine 10 mg tablet 10 mg PO BID tablet 12/29/20 [History Last Taken Unknown] apixaban 5 mg tablet 5 mg PO BID #180 tab 01/15/21 [Rx Last Taken Unknown] cyanocobalamin (vitamin B-12) [Vitamin B-12] 1,000 mcg PO DAILY 03/25/21 [History Last Taken Unknown] metoprolol succinate 100 mg PO DAILY 03/25/21 [History Last Taken Unknown] Allergy/AdvReac Type Severity Reaction Status Date / Time amiodarone AdvReac Severe Hyperthyroi Verified 03/25/21 11:58 dism Family History Mother Diabetes CVA (cerebral vascular accident) Father Myocardial infarction CAD (coronary artery disease) Sister Diabetes Son Hypertension Daughter Thyroid disorder hyperthyroid Diabetes Daughter Diabetes Daughter Thyroid disorder hypothyroid Surgical History History of hemorrhoidectomy History of tonsillectomy and adenoidectomy Social History Smoking Status: Never smoker how long ago did patient quit smokin alcohol intake: current alcohol intake frequency: holidays/special occasions only Alcohol type: wine substance use type: does not use caffeine: Yes Type: coffee Number of servings: 3 what type of physical activity do you participate in: none seatbelt use: always do you feel safe at home: Yes ROS Constitutional Constitutional: Reports lethargy and malaise Eyes Eyes: Denies systems reviewed and no addt'l complaints, except as documented, as per HPI, none, acute decrease in peripheral vision, blindness, blind spots, bloody eye, blurry vision, burning, change in eye color, change in vision, decreased night vision, diplopia, discharge from eye(s), discongugate gaze, double vision, dry eyes, erythema, excessive blinking, exophthalmos, eye pain, floaters, foreign body, halo effect, irritation, itchy eyes, loss of central vision, loss of peripheral vision, loss of vision, miosis, mydriasis, numbness, nystagmus, other visual disturbances, periorbital itching, photophobia, ptosis, puffy eyes, requires corrective lenses, seeing flashes, spots in vision, sunken eyes, tearing, tunnel vision or other ENT HEENT: Denies systems reviewed and no addt'l complaints, except as documented, as per HPI, none, abnormal hearing, bleeding gums, change in voice, dental pain, disequillibrium, dizziness, dry mouth, dysphagia, ear discharge, ear pain, epistaxis, facial pain, foreign body in nose, halitosis, headache(s), hearing loss, hoarseness, lip swelling, loss taste/smell, mouth lesions, mouth pain, mucositis, nasal congestion, nasal discharge, nasal obstruction, nasal trauma, neck mass, neck pain, nose pain, odynophagia, otalgia, post nasal drip, rhinorrhea, sinus pain, sinus pressure, sore throat, throat swelling, tinnitus, tongue swelling, vertigo or other Cardiovascular Cardiovascular: Reports palpitations Respiratory/Chest Respiratory/Chest: Reports as per HPI Gastrointestinal Gastrointestinal: Denies systems reviewed and no addt'l complaints, except as documented, as per HPI, none, abdominal pain, anorexia, belching, bloating, change in bowel habits, change in stool character, chewing difficulty, coffee ground emesis, constipation, cramping, diarrhea, dry heaves, dyspepsia, dysphagia, early satiety, excessive flatus, fecal incontinence, heartburn, hematemesis, hematochezia, hemorrhoids, loose stools, melena, nausea, odynophagia, rectal bleeding, taste impaired, tenesmus, vomiting, weight changes or other Genitourinary Genitourinary: Denies systems reviewed and no addt'l complaints, except as documented, as per HPI, none, abdominal discomfort, anuria, burning urination, change in libido, change in urinary stream, contractions, difficulty urinating, difficulty with ejaculations, dribbling, dysuria, erectile dysfunction, external genitalia discoloration, movement, flank pain, genital bruising, genital lesions, genital pain, hematospermia, hematuria, itching, low back pain, nocturia, oliguria, painful ejaculations, penile discharge, penile swelling, polyuria, post void dribbling, scrotal pain, scrotal swelling, testicular mass, testicular swelling, undescended testicles, urinary frequency, urinary hesitancy, urinary incontinence, urinary urgency or other Musculoskeletal Musculoskeletal: Denies systems reviewed and no addt'l complaints, except as documented, as per HPI, none, abnormal gait, arthralgias, atrophy, back pain, deformity, difficulty walking, extremity pain, joint pain, joint stiffness, joint swelling, limited range of motion, loss of height, muscle cramps, muscle spasms, muscle weakness, myalgias, neck pain, numbness, radiating pain into limb, stiffness, tingling, tremors or other Psychiatric Psychiatric: Denies systems reviewed and no addt'l complaints, except as documented, as per HPI, none, abnormal sleep pattern, anhedonia, anxiety, auditory hallucinations, behavioral changes, change in appetite, change in libido, cognitive impairment, confusion, depression, difficulty concentrating, hallucinations, homicidal ideation, hopelessness, irritability, memory loss, mood swings, panic attacks, paranoia, suicidal ideation, suicidal thoughts, tactile hallucinations, visual hallucinations or other Physical Exam Testes: Negative for testicular swelling or testicular mass Objective Data Vital Signs: Vital Signs Temp Pulse Resp BP Pulse Ox 98.1 F 124 H 21 H 150/95 H 92 03/26/21 03:00 03/26/21 08:00 03/26/21 08:00 03/26/21 08:00 03/26/21 08:00 Oxygen Flow Rate (L/min) 3 Oxygen Delivery Method Nasal Cannula Weight: 210 lb 15.718 oz Body Mass Index (BMI) 30.7 Intake & Output: Intake and Output for Last 24 Hours 03/24/21 03/25/21 03/26/21 23:59 23:59 23:59 Intake Total 542.83 / 592.83 1124.25 / 1124.25 Output Total 550 / 550 Balance 542.83 / 367.83 574.25 / 574.25 Lab / Micro Data Result Diagrams: 03/26/21 03:45 03/26/21 03:45 Labs: Laboratory Results - last 24 hr 03/25/21 03/25/21 03/25/21 12:17 12:17 12:17 WBC 7.7 RBC 4.50 L Hgb 14.6 Hct 43.8 MCV 97.3 H MCH 32.4 H MCHC 33.3 RDW Std Deviation 47.4 H RDW Coeff of Monica 13.2 Plt Count 221 MPV 9.7 Immature Gran % (Auto) 0.300 Neut % (Auto) 77.5 H Lymph % (Auto) 8.2 L [place] % (Auto) 12.3 H Eos % (Auto) 1.3 Baso % (Auto) 0.4 Absolute Neuts (auto) 6.0 Absolute Lymphs (auto) 0.63 L Nucleated RBC % 0 PT INR APTT Sodium 141 Potassium 3.8 Chloride 107 Carbon Dioxide 27.0 Anion Gap 7 BUN 15 Creatinine 1.46 H Estim Creat Clear Calc 39.58 Est GFR (MDRD) Af Amer 59 L Est GFR (MDRD) Non-Af 49 L BUN/Creatinine Ratio 10.3 Glucose 94 Lactic Acid 1.8 Calcium 8.4 L Magnesium Total Bilirubin 1.50 H AST 16 ALT 20 Alkaline Phosphatase 100 Troponin I 0.116 H Total Protein 6.6 Albumin 3.2 Globulin 3.4 Albumin/Globulin Ratio 0.9 Urine Color Urine Clarity Urine pH Ur Specific [place] Urine Protein Urine Glucose (UA) Urine Ketones Urine Occult Blood Urine Nitrite Urine Bilirubin Urine Urobilinogen Ur Leukocyte Esterase Urine RBC Urine WBC Ur Squamous Epith Cells Urine Bacteria Hyaline Casts Urine Mucus 03/25/21 03/25/21 03/25/21 13:42 13:52 17:00 WBC RBC Hgb Hct MCV MCH MCHC RDW Std Deviation RDW Coeff of Monica Plt Count MPV Immature Gran % (Auto) Neut % (Auto) Lymph % (Auto) [place] % (Auto) Eos % (Auto) Baso % (Auto) Absolute Neuts (auto) Absolute Lymphs (auto) Nucleated RBC % PT 17.0 H INR 1.5 APTT 36.3 H Sodium Potassium Chloride Carbon Dioxide Anion Gap BUN Creatinine Estim Creat Clear Calc Est GFR (MDRD) Af Amer Est GFR (MDRD) Non-Af BUN/Creatinine Ratio Glucose Lactic Acid Calcium Magnesium Total Bilirubin AST ALT Alkaline Phosphatase Troponin I 0.120 H Total Protein Albumin Globulin Albumin/Globulin Ratio Urine Color Yellow Urine Clarity Clear Urine pH 6.5 Ur Specific [place] 1.010 Urine Protein 15 H Urine Glucose (UA) Normal Urine Ketones Negative Urine Occult Blood Negative Urine Nitrite Negative Urine Bilirubin Negative Urine Urobilinogen Normal Ur Leukocyte Esterase Negative Urine RBC 0 SEEN Urine WBC 0 SEEN Ur Squamous Epith Cells 0-5 SEEN Urine Bacteria RARE Hyaline Casts 0-5 SEEN Urine Mucus 0 SEEN 03/25/21 03/25/21 03/26/21 20:01 22:50 03:45 WBC 7.7 RBC 4.63 Hgb 14.9 Hct 45.0 MCV 97.2 H MCH 32.2 H MCHC 33.1 RDW Std Deviation 47.3 H RDW Coeff of [place] 13.2 Plt Count 209 MPV 9.5 Immature Gran % (Auto) 0.500 Neut % (Auto) 71.1 H Lymph % (Auto) 11.6 L [place] % (Auto) 12.4 H Eos % (Auto) 4.0 Baso % (Auto) 0.4 Absolute Neuts (auto) 5.4 Absolute Lymphs (auto) 0.89 Nucleated RBC % 0 PT INR APTT Sodium Potassium Chloride Carbon Dioxide Anion Gap BUN Creatinine Estim Creat Clear Calc Est GFR (MDRD) Af Amer Est GFR (MDRD) Non-Af BUN/Creatinine Ratio Glucose Lactic Acid Calcium Magnesium Total Bilirubin AST ALT Alkaline Phosphatase Troponin I 0.115 H 0.129 H Total Protein Albumin Globulin Albumin/Globulin Ratio Urine Color Urine Clarity Urine pH Ur Specific [place] Urine Protein Urine Glucose (UA) Urine Ketones Urine Occult Blood Urine Nitrite Urine Bilirubin Urine Urobilinogen Ur Leukocyte Esterase Urine RBC Urine WBC Ur Squamous Epith Cells Urine Bacteria Hyaline Casts Urine Mucus 03/26/21 03:45 WBC RBC Hgb Hct MCV MCH MCHC RDW Std Deviation RDW Coeff of [place] Plt Count MPV Immature Gran % (Auto) Neut % (Auto) Lymph % (Auto) [place] % (Auto) Eos % (Auto) Baso % (Auto) Absolute Neuts (auto) Absolute Lymphs (auto) Nucleated RBC % PT INR APTT Sodium 142 Potassium 3.5 Chloride 108 H Carbon Dioxide 27.0 Anion Gap 7 BUN 14 Creatinine 1.03 Estim Creat Clear Calc 54.34 Est GFR (MDRD) Af Amer 89 Est GFR (MDRD) Non-Af 73 BUN/Creatinine Ratio 13.6 Glucose 99 Lactic Acid Calcium 8.4 L Magnesium 2.2 Total Bilirubin AST ALT Alkaline Phosphatase Troponin I Total Protein Albumin Globulin Albumin/Globulin Ratio Urine Color Urine Clarity Urine pH Ur Specific [place] Urine Protein Urine Glucose (UA) Urine Ketones Urine Occult Blood Urine Nitrite Urine Bilirubin Urine Urobilinogen Ur Leukocyte Esterase Urine RBC Urine WBC Ur Squamous Epith Cells Urine Bacteria Hyaline Casts Urine Mucus Cardiology Labs/Tests 03/25/21 12:17: Sodium 141, Potassium 3.8, Chloride 107, Carbon Dioxide 27.0, Anion Gap 7, BUN 15, Creatinine 1.46 H, Est GFR (MDRD) Af Amer 59 L, Est GFR (MDRD) Non-Af 49 L, BUN/Creatinine Ratio 10.3, Glucose 94, Calcium 8.4 L, Total Bilirubin 1.50 H, Troponin I 0.116 H 03/25/21 12:17: WBC 7.7, RBC 4.50 L, Hgb 14.6, Hct 43.8, MCV 97.3 H, MCH 32.4 H, MCHC 33.3, Plt Count 221, MPV 9.7, Immature Gran % (Auto) 0.300, Neut % (Auto) 77.5 H, Lymph % (Auto) 8.2 L, [place] % (Auto) 12.3 H, Eos % (Auto) 1.3, Baso % (Auto) 0.4, Absolute Neuts (auto) 6.0, Nucleated RBC % 0 03/25/21 12:17: Lactic Acid 1.8 03/25/21 13:42: Urine Color Yellow, Urine Clarity Clear, Urine pH 6.5, Ur Specific [place] 1.010, Urine Protein 15 H, Urine Glucose (UA) Normal, Urine Ketones Negative, Urine Occult Blood Negative, Urine Nitrite Negative, Urine Bilirubin Negative, Urine Urobilinogen Normal, Ur Leukocyte Esterase Negative, Urine RBC 0 SEEN, Urine WBC 0 SEEN 03/25/21 13:52: PT 17.0 H, INR 1.5, APTT 36.3 H 03/25/21 17:00: Troponin I 0.120 H 03/25/21 20:01: Troponin I 0.115 H 03/25/21 22:50: Troponin I 0.129 H 03/26/21 03:45: WBC 7.7, RBC 4.63, Hgb 14.9, Hct 45.0, MCV 97.2 H, MCH 32.2 H, MCHC 33.1, Plt Count 209, MPV 9.5, Immature Gran % (Auto) 0.500, Neut % (Auto) 71.1 H, Lymph % (Auto) 11.6 L, [place] % (Auto) 12.4 H, Eos % (Auto) 4.0, Baso % (Auto) 0.4, Absolute Neuts (auto) 5.4, Nucleated RBC % 0 03/26/21 03:45: Sodium 142, Potassium 3.5, Chloride 108 H, Carbon Dioxide 27.0, Anion Gap 7, BUN 14, Creatinine 1.03, Est GFR (MDRD) Af Amer 89, Est GFR (MDRD) Non-Af 73, BUN/Creatinine Ratio 13.6, Glucose 99, Calcium 8.4 L, Magnesium 2.2 Rhythm: EKG: Atrial fibrillation with rapid ventricular response rate. Inferior lateral EKG changes are noted. ECHO: Stress Test: Cardiac Cath: PCI: CT Surgery: Holter monitor: EPS: PPM: CXR: Chest CT Scan: Radiography Diagnostic Testing: Radiology Impression Brain CT 03/25/21 12:14 IMPRESSION: Chronic involutional changes of the brain. Electronically Signed: Amadou Deal MD at 14:54 EDT , Service support , Chest X-Ray 03/25/21 12:15 IMPRESSION: No radiographic evidence of acute cardiopulmonary disease. at 1540 Reported and signed by: Conrad Randolph MD Electronically Signed: Conrad Randolph MD at 15:39 EDT Tel , Service support ,
[2021-03-26] MEDS: Potassium Chloride Oral Tablet 20 MEQ 40 MEQ PO (09:32)
[2021-03-26] MEDS: Metoprolol(XL)Succ 100 MG Tablet PO (09:32)
[2021-03-26] MEDS: Cholecalciferol (VIT D3) 25 MCG TABLET (1,000 UNITS) 50 MCG PO (09:32)
[2021-03-26] MEDS: Cyanocobalamin 500 MCG Tablet 1000 MCG PO (09:32)
[2021-03-26] MEDS: Citalopram 40 MG TABLET PO (09:33)
[2021-03-26] MEDS: APIXABAN 5 MG TABLET PO ×2 (09:33→21:16)
[2021-03-26] MEDS: Memantine Hydrochloride 10 MG Tablet PO ×2 (09:33→21:16)
[2021-03-26] MEDS: dilTIAZem 25 MG/5 ML Vial IV BOLUS (10:33)
--- NOTE | 2021-03-26 12:02 | PN.HOSP_ITS ---
Subjective Subjective Patient has no complaints this morning. He does have considerable dementia. Objective Data Objective Data Vital Signs: Vital Signs Temp Pulse Resp BP Pulse Ox 97.2 F L 124 H 24 H 146/92 H 92 03/26/21 09:00 03/26/21 10:00 03/26/21 10:00 03/26/21 10:00 03/26/21 10:00 Oxygen Flow Rate (L/min) 2 Oxygen Delivery Method Room Air Weight: 95.7 kg Body Mass Index (BMI) 30.7 Intake & Output: Intake and Output for Last 24 Hours 03/24/21 03/25/21 03/26/21 23:59 23:59 23:59 Intake Total 542.83 / 592.83 1146.75 / 1146.75 Output Total 550 / 550 Balance 542.83 / 367.83 596.75 / 596.75 Lab / Micro Data Result Diagrams: 03/26/21 03:45 03/26/21 03:45 Labs: Laboratory Results - last 24 hr 03/25/21 03/25/21 03/25/21 12:17 12:17 12:17 WBC 7.7 RBC 4.50 L Hgb 14.6 Hct 43.8 MCV 97.3 H MCH 32.4 H MCHC 33.3 RDW Std Deviation 47.4 H RDW Coeff of Monica 13.2 Plt Count 221 MPV 9.7 Immature Gran % (Auto) 0.300 Neut % (Auto) 77.5 H Lymph % (Auto) 8.2 L [place] % (Auto) 12.3 H Eos % (Auto) 1.3 Baso % (Auto) 0.4 Absolute Neuts (auto) 6.0 Absolute Lymphs (auto) 0.63 L Nucleated RBC % 0 PT INR APTT Sodium 141 Potassium 3.8 Chloride 107 Carbon Dioxide 27.0 Anion Gap 7 BUN 15 Creatinine 1.46 H Estim Creat Clear Calc 39.58 Est GFR (MDRD) Af Amer 59 L Est GFR (MDRD) Non-Af 49 L BUN/Creatinine Ratio 10.3 Glucose 94 Lactic Acid 1.8 Calcium 8.4 L Magnesium Total Bilirubin 1.50 H AST 16 ALT 20 Alkaline Phosphatase 100 Troponin I 0.116 H Total Protein 6.6 Albumin 3.2 Globulin 3.4 Albumin/Globulin Ratio 0.9 Urine Color Urine Clarity Urine pH Ur Specific [place] Urine Protein Urine Glucose (UA) Urine Ketones Urine Occult Blood Urine Nitrite Urine Bilirubin Urine Urobilinogen Ur Leukocyte Esterase Urine RBC Urine WBC Ur Squamous Epith Cells Urine Bacteria Hyaline Casts Urine Mucus 03/25/21 03/25/21 03/25/21 13:42 13:52 17:00 WBC RBC Hgb Hct MCV MCH MCHC RDW Std Deviation RDW Coeff of Monica Plt Count MPV Immature Gran % (Auto) Neut % (Auto) Lymph % (Auto) [place] % (Auto) Eos % (Auto) Baso % (Auto) Absolute Neuts (auto) Absolute Lymphs (auto) Nucleated RBC % PT 17.0 H INR 1.5 APTT 36.3 H Sodium Potassium Chloride Carbon Dioxide Anion Gap BUN Creatinine Estim Creat Clear Calc Est GFR (MDRD) Af Amer Est GFR (MDRD) Non-Af BUN/Creatinine Ratio Glucose Lactic Acid Calcium Magnesium Total Bilirubin AST ALT Alkaline Phosphatase Troponin I 0.120 H Total Protein Albumin Globulin Albumin/Globulin Ratio Urine Color Yellow Urine Clarity Clear Urine pH 6.5 Ur Specific [place] 1.010 Urine Protein 15 H Urine Glucose (UA) Normal Urine Ketones Negative Urine Occult Blood Negative Urine Nitrite Negative Urine Bilirubin Negative Urine Urobilinogen Normal Ur Leukocyte Esterase Negative Urine RBC 0 SEEN Urine WBC 0 SEEN Ur Squamous Epith Cells 0-5 SEEN Urine Bacteria RARE Hyaline Casts 0-5 SEEN Urine Mucus 0 SEEN 03/25/21 03/25/21 03/26/21 20:01 22:50 03:45 WBC 7.7 RBC 4.63 Hgb 14.9 Hct 45.0 MCV 97.2 H MCH 32.2 H MCHC 33.1 RDW Std Deviation 47.3 H RDW Coeff of Monica 13.2 Plt Count 209 MPV 9.5 Immature Gran % (Auto) 0.500 Neut % (Auto) 71.1 H Lymph % (Auto) 11.6 L [place] % (Auto) 12.4 H Eos % (Auto) 4.0 Baso % (Auto) 0.4 Absolute Neuts (auto) 5.4 Absolute Lymphs (auto) 0.89 Nucleated RBC % 0 PT INR APTT Sodium Potassium Chloride Carbon Dioxide Anion Gap BUN Creatinine Estim Creat Clear Calc Est GFR (MDRD) Af Amer Est GFR (MDRD) Non-Af BUN/Creatinine Ratio Glucose Lactic Acid Calcium Magnesium Total Bilirubin AST ALT Alkaline Phosphatase Troponin I 0.115 H 0.129 H Total Protein Albumin Globulin Albumin/Globulin Ratio Urine Color Urine Clarity Urine pH Ur Specific [place] Urine Protein Urine Glucose (UA) Urine Ketones Urine Occult Blood Urine Nitrite Urine Bilirubin Urine Urobilinogen Ur Leukocyte Esterase Urine RBC Urine WBC Ur Squamous Epith Cells Urine Bacteria Hyaline Casts Urine Mucus 03/26/21 03:45 WBC RBC Hgb Hct MCV MCH MCHC RDW Std Deviation RDW Coeff of Monica Plt Count MPV Immature Gran % (Auto) Neut % (Auto) Lymph % (Auto) [place] % (Auto) Eos % (Auto) Baso % (Auto) Absolute Neuts (auto) Absolute Lymphs (auto) Nucleated RBC % PT INR APTT Sodium 142 Potassium 3.5 Chloride 108 H Carbon Dioxide 27.0 Anion Gap 7 BUN 14 Creatinine 1.03 Estim Creat Clear Calc 54.34 Est GFR (MDRD) Af Amer 89 Est GFR (MDRD) Non-Af 73 BUN/Creatinine Ratio 13.6 Glucose 99 Lactic Acid Calcium 8.4 L Magnesium 2.2 Total Bilirubin AST ALT Alkaline Phosphatase Troponin I Total Protein Albumin Globulin Albumin/Globulin Ratio Urine Color Urine Clarity Urine pH Ur Specific [place] Urine Protein Urine Glucose (UA) Urine Ketones Urine Occult Blood Urine Nitrite Urine Bilirubin Urine Urobilinogen Ur Leukocyte Esterase Urine RBC Urine WBC Ur Squamous Epith Cells Urine Bacteria Hyaline Casts Urine Mucus Radiography Diagnostic Testing: Radiology Impression Brain CT 03/25/21 12:14 IMPRESSION: Chronic involutional changes of the brain. Electronically Signed: Amadou Deal MD at 14:54 EDT , Service support , Chest X-Ray 03/25/21 12:15 IMPRESSION: No radiographic evidence of acute cardiopulmonary disease. at 1540 Reported and signed by: Conrad Randolph MD Electronically Signed: Conrad Randolph MD at 15:39 EDT Tel , Service support , Physical Exam Const alert, no apparent distress, average body habitus and well nourished Constitutional Narrative: Elderly white male, sitting up in bed, appears comfortable, considerable dementia with questioning Orientation / Consciousness: confused HEENT head/scalp atraumatic and moist oral mucous membranes Head and Scalp: normocephalic Mouth: oral and palatal mucosa normal Eyes PERRL, EOMs intact bilaterally and conjunctivae normal Neck no lymphadenopathy, supple and no JVD Resp normal respiratory effort, no retractions, no use of accessory muscles and clear to auscultation bilaterally Cardio S1 normal heart sound, S2 normal heart sound, no murmurs, no rub, no gallops, no clicks and no JVD Cardio Narrative: Irregularly irregular rhythm with rapid ventricular rate GI normal to inspection, nondistended, normoactive bowel sounds, soft to palpation, non-tender and non-distended Extremity normal to inspection, full ROM and no clubbing, cyanosis or edema Peripheral Pulses: Yes pulses 2+ throughout Neuro CN's II-XII intact bilaterally, moves all extremities and no focal motor deficits Sensorium / Orientation: awake and alert Speech: speech normal Psych Psych Narrative: Confused but affect normal Assessment & Plan Assessment/Plan (1) Dementia: (2) Atrial flutter with rapid ventricular response: (3) Persistent atrial fibrillation: (4) Essential (primary) hypertension: (5) Hyperlipidemia: QUALIFIERS: Hyperlipidemia type: mixed hyperlipidemia Qualified Code(s): E78.2 - Mixed hyperlipidemia PLAN: Atrial fibrillation with RVR -Patient has chronic atrial fibrillation -Patient is currently on metoprolol 100 mg twice daily and a Cardizem drip -Heart rates remain in the 120's -Patient with amiodarone allergy--> hyperthyroidism -Upon review of the outpatient notes it appears that the patient has had difficult to manage tachycardia -Continue anticoagulation-NOAC -Recent echocardiogram from February reviewed--> EF 65% and no wall motion abnormalities noted, JANICE, mild PAH -No need to repeat -Check TSH -Cardiology consultation Transient hypotension -Resolved Troponin elevation -Suspect related to demand ischemia from tachycardia -Cardiology is following Acute delirium -Resolved per patient's in the emergency department Essential hypertension -Continue metoprolol and diltiazem -Continue to monitor GERD -Continue famotidine -Dementia -Continue Namenda CKD stage IIIa -Patient serum creatinine is at baseline -Continue to monitor DVT prophylaxis -Continue apixaban CODE STATUS -DNR CCA no intubation Charges/Coding Visit Charges Inpatient E&M: 74223 Subs Hosp L2
--- NOTE | 2021-03-26 12:40 | EKG12_ITS ---
Test Reason : Blood Pressure : / mmHG Vent. Rate : 082 BPM Atrial Rate : 082 BPM P-R Int : 000 ms QRS Dur : 098 ms QT Int : 382 ms P-R-T Axes : 000 030 -89 degrees QTc Int : 446 ms Atrial tachycardia with block ST & T wave abnormality, consider inferior ischemia ST & T wave abnormality, consider anterolateral ischemia Abnormal ECG When compared with ECG of 25-MAR-2021 12:13, Current undetermined rhythm precludes rhythm comparison, needs review T wave inversion now evident in Anterior leads Confirmed by ADEBAYO MIX, AMBER ([id number]), image editor ALINE ZAMORA ([id number]) on 03/29/2021 12:39:08 PM Referred By: Confirmed By:AMBER FIORE MD
[2021-03-26] MEDS: Amiodarone 200 MG Tablet PO ×2 (13:58→21:16)
--- NOTE | 2021-03-26 14:35 | CASEMGMT ---
RN TRAV called for initial transition planning/care coordination assessment as patient has dementia. RN TRAV introduced self and role at [facility]. , Jesica, willing to participate in assessment and is able to answer all questions appropriately. Care providers, pharmacy, and demographics verified. wishes to discharge home, will monitor progress with therapy for possible HHC. states she has no further needs or concerns at this time. CM to follow for discharge planning needs that may arise. PCP: Jenny Specialists: Paulo forging dies final finisher Preferred Pharmacy: [facility] Insurance: [facility] Prescription Benefit: yes Living Will/HPOA: yes, Jesica Bass LNOK: Living Arrangements: Patient lives with in a condo with no steps to enter. states that patient is normally independent at home. Transportation: DME/HHC: states patient has shower chair, raised toilet, grab bars, and walker at home. Denies previous HHC or SNF. Disposition Plan: Patient to discharge home with family support and follow-up plans in place. Will monitor for HHC pending progress with therapy. Keiry SANTANA, RN, CM
[2021-03-26] MEDS: Mirtazapine 30 MG Tablet PO (21:16)
[2021-03-27] VITALS (11 sets, daily range): BP systolic 102–131; BP diastolic 56–87; PULSE 63–85; RESP 16–23; TEMP 35.9–36.4; O2SAT 91–94
[2021-03-27 04:11] LABS: Absolute Lymphocyte Count 0.59 X10^3/uL (0.83-4.51); Absolute Neutrophil Count 4.7 X10^3/uL (2.0-7.7); Basophil# 0.02 X10^3/uL; Basophil% 0.3 % (0-1); Eosinophil# 0.48 X10^3/uL; Eosinophils% 7.4 % (0-5); Hematocrit 42.9 % (40-54); Hemoglobin 14.2 g/dL (13.0-16.5); Lymphocyte # 0.59 X10^3/ul (0.83-4.51); Mean Corp Hgb Conc 33.1 g/dL (32-36); Mean Corpuscular Hgb 32.3 pg (27.0-32.0); Mean Corpuscular Volume 97.7 fL (80-94); Mean Platelet Vol. 9.8 fl (6.2-12.0); Monocyte# 0.73 X10^3/uL; Monocyte% 11.2 % (0-10); NRBC Flagged by Analyzer 0 % (0-5); Neutrophil # 4.68 X10^3/uL (2.7-7.7); Neutrophil % 71.8 % (47-70); POSITIVE DIFFERENTIAL YES; Platelet Count 205 K/mm3 (150-450); RBC Distribution Width CV 13.1 % (11.6-14.6); RBC Distribution Width SD 47.3 fl (35.1-43.9); Red Blood Count 4.39 M/mm3 (4.6-6.2); White Blood Count 6.5 K/mm3 (4.4-11.0)
[2021-03-27 04:12] LABS: Differential Indicated SCAN CRITERIA MET
[2021-03-27 04:29] LABS: Differential Comment SCANNED
[2021-03-27 04:33] LABS: ALB/GLOB Ratio 0.8 RATIO (0.9-2.4); AST(SGOT) 17 U/L (15-37); Alanine Aminotransfer ALT/SGPT 17 U/L (16-61); Albumin, Serum 2.4 g/dL (3.2-5.0); Alkaline Phosphatase 77 U/L (45-117); Anion Gap 6 (5-15); BUN 10 mg/dL (7-18); BUN/Creat Ratio 11.7 RATIO (10-20); Chloride 115 mmol/L (98-107); Creatinine, Serum 0.86 mg/dL (0.70-1.30); EST Glomerular Filtration Rate 91 mL/min (>60); Est Glom Filt Rate - Afr Amer 110 mL/min (>60); Estimated Creatinine Clearance 65.08 ml/min; Globulin 2.9 g/dL (2.2-4.2); Glucose 91 mg/dL (74-106); Magnesium 1.7 mg/dL (1.6-2.6); Potassium 3.3 mmol/L (3.5-5.1); Protein, Total 5.3 g/dL (6.4-8.2); Sodium Level 145 mmol/L (136-145)
[2021-03-27] MEDS: Amiodarone 200 MG Tablet PO ×2 (05:43→13:01)
[2021-03-27] MEDS: 0.9% Normal Saline 1,000 ML 75 ML IV (06:18)
[2021-03-27] MEDS: Potassium Chloride Oral Tablet 20 MEQ 40 MEQ PO ×2 (10:44→10:48)
[2021-03-27] MEDS: APIXABAN 5 MG TABLET PO (10:44)
[2021-03-27] MEDS: Citalopram 40 MG TABLET PO (10:45)
[2021-03-27] MEDS: Cholecalciferol (VIT D3) 25 MCG TABLET (1,000 UNITS) 50 MCG PO (10:45)
[2021-03-27] MEDS: Metoprolol(XL)Succ 100 MG Tablet PO (10:45)
[2021-03-27] MEDS: Memantine Hydrochloride 10 MG Tablet PO (10:45)
[2021-03-27] MEDS: Cyanocobalamin 500 MCG Tablet 1000 MCG PO (10:46)
--- NOTE | 2021-03-27 10:50 | PCM.PN.HOSP ---
Subjective Subjective No issues overnight. Cardizem was discontinued at 4 AM. Patient was started on amiodarone. Heart rates of been labile. Objective Data Objective Data Vital Signs: Vital Signs Temp Pulse Resp BP Pulse Ox 97.6 F L 83 23 H 131/84 H 93 03/27/21 00:00 03/27/21 10:45 03/27/21 02:00 03/27/21 02:00 03/27/21 02:00 Oxygen Flow Rate (L/min) 2 Oxygen Delivery Method Room Air Weight: 97.6 kg Body Mass Index (BMI) 30.7 Intake & Output: Intake and Output for Last 24 Hours 03/25/21 03/26/21 03/27/21 23:59 23:59 23:59 Intake Total 542.83 / 592.83 2626.75 / 2631.75 1118.75 / 1118.75 Output Total 1300 / 1300 500 / 500 Balance 542.83 / 367.83 1326.75 / 1331.75 618.75 / 618.75 Lab / Micro Data Result Diagrams: 03/27/21 04:00 03/27/21 04:00 Labs: Laboratory Results - last 24 hr 03/27/21 03/27/21 04:00 04:00 WBC 6.5 RBC 4.39 L Hgb 14.2 Hct 42.9 MCV 97.7 H MCH 32.3 H MCHC 33.1 RDW Std Deviation 47.3 H RDW Coeff of Monica 13.1 Plt Count 205 MPV 9.8 Immature Gran % (Auto) 0.300 Neut % (Auto) 71.8 H Lymph % (Auto) 9.0 L [place] % (Auto) 11.2 H Eos % (Auto) 7.4 H Baso % (Auto) 0.3 Absolute Neuts (auto) 4.7 Absolute Lymphs (auto) 0.59 L Nucleated RBC % 0 Differential Comment SCANNED Sodium 145 Potassium 3.3 L Chloride 115 H Carbon Dioxide 24.0 Anion Gap 6 BUN 10 Creatinine 0.86 Estim Creat Clear Calc 65.08 Est GFR (MDRD) Af Amer 110 Est GFR (MDRD) Non-Af 91 BUN/Creatinine Ratio 11.7 Glucose 91 Calcium 7.0 L Magnesium 1.7 Total Bilirubin 0.70 AST 17 ALT 17 Alkaline Phosphatase 77 Total Protein 5.3 L Albumin 2.4 L Globulin 2.9 Albumin/Globulin Ratio 0.8 L TSH 1.60 Micro: Microbiology 03/25/21 13:42 Urine, Midstream Urine Culture - Final Coag Negative Staph Physical Exam Const alert, oriented x3, no apparent distress, average body habitus and healthy appearing Constitutional Narrative: Older white male sitting up in bed, appears comfortable, nontoxic, significant dementia HEENT head/scalp atraumatic Head and Scalp: normocephalic Eyes PERRL and EOMs intact bilaterally Neck supple Neck Narrative: Trachea midline Resp normal respiratory effort, no retractions, no use of accessory muscles and clear to auscultation bilaterally Cardio S1 normal heart sound, S2 normal heart sound, no murmurs, no rub, no gallops, no clicks and no JVD; Negative for regular rate or regular rhythm Cardio Narrative: Tachycardic-heart rate in the 120s, irregular rhythm GI normal to inspection, nondistended, normoactive bowel sounds, soft to palpation, non-tender and non-distended Extremity normal to inspection and no clubbing, cyanosis or edema Peripheral Pulses: Yes pulses 2+ throughout Neuro CN's II-XII intact bilaterally, moves all extremities and no focal motor deficits Neuro Narrative: Confused but baseline Sensorium / Orientation: awake and alert Psych affect normal Assessment & Plan Assessment/Plan (1) Atrial flutter with rapid ventricular response: (2) Persistent atrial fibrillation: (3) Essential (primary) hypertension: (4) Hyperlipidemia: QUALIFIERS: Hyperlipidemia type: mixed hyperlipidemia Qualified Code(s): E78.2 - Mixed hyperlipidemia (5) Dementia: PLAN: Atrial fibrillation with RVR -Patient has chronic atrial fibrillation -Patient is currently on metoprolol 100 mg twice daily -Patient had been on Cardizem with better heart rates -Cardizem was discontinued this morning at 4 AM and heart rates are back up into the 120s -Patient with amiodarone allergy--> hyperthyroidism -Amiodarone was initiated by cardiology yesterday--> will discuss with cardiology -Upon review of the outpatient notes it appears that the patient has had difficult to manage tachycardia -Continue anticoagulation-NOAC -Recent echocardiogram from February reviewed--> EF 65% and no wall motion abnormalities noted, JANICE, mild PAH -No need to repeat -TSH is within normal limits--> 1.60 -Cardiology is following and managing atrial fibrillation -Possible discharge home depending on input from care program resident Hypokalemia -40 mEq of potassium given today -Repeat in a.m. Troponin elevation -Suspect related to demand ischemia from tachycardia -Cardiology is following Acute delirium -Resolved per patient's in the emergency department Essential hypertension -Continue metoprolol and diltiazem -Continue to monitor GERD -Continue famotidine Dementia -Continue Namenda CKD stage IIIa -Patient serum creatinine is at baseline -Continue to monitor DVT prophylaxis -Continue apixaban CODE STATUS -DNR CCA no intubation Charges/Coding Visit Charges Inpatient E&M: 65540 Subs Hosp L2
--- NOTE | 2021-03-27 11:12 | PN.CARD_ITS ---
Subjective Subjective Patient seen and evaluated. Still mildly confused. His heart rate is under better control. He appears to be asymptomatic. Objective Data Vital Signs: Vital Signs Temp Pulse Resp BP Pulse Ox 97.6 F L 83 23 H 131/84 H 93 03/27/21 00:00 03/27/21 10:45 03/27/21 02:00 03/27/21 02:00 03/27/21 02:00 Oxygen Flow Rate (L/min) 2 Oxygen Delivery Method Room Air Weight: 215 lb 2.738 oz Body Mass Index (BMI) 30.7 Intake & Output: Intake and Output for Last 24 Hours 03/25/21 03/26/21 03/27/21 23:59 23:59 23:59 Intake Total 542.83 / 592.83 2626.75 / 2631.75 1118.75 / 1118.75 Output Total 1300 / 1300 500 / 500 Balance 542.83 / 367.83 1326.75 / 1331.75 618.75 / 618.75 Lab / Micro Data Result Diagrams: 03/27/21 04:00 03/27/21 04:00 Labs: Laboratory Results - last 24 hr 03/27/21 03/27/21 04:00 04:00 WBC 6.5 RBC 4.39 L Hgb 14.2 Hct 42.9 MCV 97.7 H MCH 32.3 H MCHC 33.1 RDW Std Deviation 47.3 H RDW Coeff of Monica 13.1 Plt Count 205 MPV 9.8 Immature Gran % (Auto) 0.300 Neut % (Auto) 71.8 H Lymph % (Auto) 9.0 L [place] % (Auto) 11.2 H Eos % (Auto) 7.4 H Baso % (Auto) 0.3 Absolute Neuts (auto) 4.7 Absolute Lymphs (auto) 0.59 L Nucleated RBC % 0 Differential Comment SCANNED Sodium 145 Potassium 3.3 L Chloride 115 H Carbon Dioxide 24.0 Anion Gap 6 BUN 10 Creatinine 0.86 Estim Creat Clear Calc 65.08 Est GFR (MDRD) Af Amer 110 Est GFR (MDRD) Non-Af 91 BUN/Creatinine Ratio 11.7 Glucose 91 Calcium 7.0 L Magnesium 1.7 Total Bilirubin 0.70 AST 17 ALT 17 Alkaline Phosphatase 77 Total Protein 5.3 L Albumin 2.4 L Globulin 2.9 Albumin/Globulin Ratio 0.8 L TSH 1.60 Micro: Microbiology 03/25/21 13:42 Urine, Midstream Urine Culture - Final Coag Negative [facility] Cardiology Labs/Tests 03/27/21 04:00: WBC 6.5, RBC 4.39 L, Hgb 14.2, Hct 42.9, MCV 97.7 H, MCH 32.3 H, MCHC 33.1, Plt Count 205, MPV 9.8, Immature Gran % (Auto) 0.300, Neut % (Auto) 71.8 H, Lymph % (Auto) 9.0 L, [place] % (Auto) 11.2 H, Eos % (Auto) 7.4 H, Baso % (Auto) 0.3, Absolute Neuts (auto) 4.7, Nucleated RBC % 0 03/27/21 04:00: Sodium 145, Potassium 3.3 L, Chloride 115 H, Carbon Dioxide 24.0, Anion Gap 6, BUN 10, Creatinine 0.86, Est GFR (MDRD) Af Amer 110, Est GFR (MDRD) Non-Af 91, BUN/Creatinine Ratio 11.7, Glucose 91, Calcium 7.0 L, Magnesium 1.7, Total Bilirubin 0.70 Rhythm: EKG: Atrial flutter with a controlled ventricular response rate and occasional premature ventricular complex. ECHO: Stress Test: Cardiac Cath: PCI: CT Surgery: Holter monitor: EPS: PPM: CXR: Chest CT Scan: Physical Exam Const oriented x3 and healthy appearing Orientation / Consciousness: awake HEENT normocephalic Eyes PERRL and conjunctivae normal Neck supple, no JVD and no carotid bruits Chest inspection of chest normal Resp normal respiratory effort and clear to auscultation bilaterally Cardio Palpation: normal PMI Rate: regular rate Rhythm: abnormal rhythm irregularly irregular Heart Sounds: S1 normal and S2 normal Peripheral Pulses: pulses 2+ throughout GI normal to inspection, nondistended, normoactive bowel sounds Extremity normal to inspection and no clubbing, cyanosis or edema Psych mental status grossly normal Assessment & Plan Assessment/Plan (1) Persistent atrial fibrillation: PLAN: He does have a history of persistent atrial fibrillation flutter. He is anticoagulated and this will be continued. He is also on amiodarone. He has been successfully weaned off the intravenous diltiazem. We will reinstitute beta-marichuy. His echocardiogram from February had demonstrated preserved left ventricular systolic function. (2) Essential (primary) hypertension: PLAN: His blood pressure appears to be under good control at this particular time I would not recommend that we make any other changes.
[2021-03-27 11:16] LABS: Bedside Glucose 171 mg/dL (70-110)
--- NOTE | 2021-03-27 11:35 | DS.PCM_ITS ---
Providers Date of Admission: 03/25/21 Primary Care Physician: Dr. Navneet Alvarado MD Consultations 03/26/21 07:46 Consult: Cardiology Routine Consulting Provider: Joshua Bates Reason for Consult: Uncontrolled Afib EMERGENT Consult: No MD Notified: Yes Date Notified: 03/26/21 Time Notified: 07:46 Method of Notification: Text Comments:: PKTY Reason For Visit: AFIB Diagnosis Discharge Diagnosis (1) Persistent atrial fibrillation: Status: Chronic Code(s): I48.1 - Persistent atrial fibrillation (2) Essential (primary) hypertension: Status: Chronic Code(s): I10 - Essential (primary) hypertension Medications at Discharge Home Medications mirtazapine 30 mg tablet 30 mg PO QHS 12/15/17 cholecalciferol (vitamin D3) 50 mcg (2,000 unit) capsule 2,000 unit PO DAILY 07/14/18 potassium chloride 20 mEq tablet,extended release 40 meq PO DAILY #90 tab 02/24/19 citalopram 40 mg tablet 40 mg PO DAILY #1 tab 03/02/19 compression stockings #2 ea 04/16/19 famotidine 10 mg tablet 10 mg PO DAILY PRN 12/29/20 memantine 10 mg tablet 10 mg PO BID tablet 12/29/20 apixaban 5 mg tablet 5 mg PO BID #180 tab 01/15/21 cyanocobalamin (vitamin B-12) [Vitamin B-12] 1,000 mcg PO DAILY 03/25/21 metoprolol succinate 100 mg PO DAILY 03/25/21 amiodarone 200 mg PO TID #90 tab 03/27/21 Hospital Course Operations None Procedures None Summary of Care Provided Minutes Spent on Discharge: 18 Hospital Course: Mr. Bass is a 81-year-old white male who presented to the emergency department at [facility] on 03/25/2021. He has a history of persistent atrial fibrillation and was on systemic anticoagulation with apixaban. He was brought in for confusion that was noted on the day of presentation. The is concerned that he was having a stroke and therefore called the squad. By the time he had arrived to the emergency department she reported that his delirium had improved. Mr. Bass does have pretty sign ificant underlying dementia. In the emergency department a CT of his head was done and was negative for any head bleed. He was found to be tachycardic and mildly hypotensive with a systolic blood pressure in the 70s. He did respond to IV fluids and he was initiated on a Cardizem drip for his A. fib with RVR. During his hospitalization he was evaluated by cardiology and was initiated on amiodarone. He has a noted history of hyperthyroidism with amiodarone but per discussion with juvenile court judge this is for short-term management only and he will be followed up in the outpatient setting for further care. A prescription for amiodarone 200 mg 3 times daily was given to the patient and he is to follow-up in 2 to 4 weeks with the nurse practitioner in the juvenile court judge office. A TSH was obtained during his hospitalization and was within normal limits. He will also continue his metoprolol 100 mg daily as well as his apixaban 5 mg twice daily. Was recommended he follow-up with his primary care physician as needed. Weight / BMI Weight Weight: 97.6 kg Body Mass Index (BMI) 30.7 ABG / Lab / Microbiology Data Result Diagrams: 03/27/21 04:00 03/27/21 04:00 Laboratory: Laboratory Results - last 24 hr 03/27/21 03/27/21 03/27/21 04:00 04:00 10:56 WBC 6.5 RBC 4.39 L Hgb 14.2 Hct 42.9 MCV 97.7 H MCH 32.3 H MCHC 33.1 RDW Std Deviation 47.3 H RDW Coeff of Monica 13.1 Plt Count 205 MPV 9.8 Immature Gran % (Auto) 0.300 Neut % (Auto) 71.8 H Lymph % (Auto) 9.0 L [place] % (Auto) 11.2 H Eos % (Auto) 7.4 H Baso % (Auto) 0.3 Absolute Neuts (auto) 4.7 Absolute Lymphs (auto) 0.59 L Nucleated RBC % 0 Differential Comment SCANNED Sodium 145 Potassium 3.3 L Chloride 115 H Carbon Dioxide 24.0 Anion Gap 6 BUN 10 Creatinine 0.86 Estim Creat Clear Calc 65.08 Est GFR (MDRD) Af Amer 110 Est GFR (MDRD) Non-Af 91 BUN/Creatinine Ratio 11.7 Glucose 91 Calcium 7.0 L Magnesium 1.7 Total Bilirubin 0.70 AST 17 ALT 17 Alkaline Phosphatase 77 Total Protein 5.3 L Albumin 2.4 L Globulin 2.9 Albumin/Globulin Ratio 0.8 L TSH 1.60 POC Glucose 171 H Microbiology: Microbiology 03/25/21 13:42 Urine Culture - Final Urine, Midstream Coag Negative Staph Microbiology 03/25/21 13:42 Urine, Midstream Urine Culture - Final Coag Negative Staph D/C Instructions Discharge Diet: Low fat / Low cholesterol Discharge Activity: Return to Normal Activity Meaningful Use Info Meaningful Use Diagnoses (Choose all that apply): None applicable Discharge Plan Admission Admit Date/Time: 03/25/21 17:30 Primary Reason for Your Visit: Confusion Attending Provider: Lana Martínez Primary Care Provider: Navneet Alvarado Consulting Providers: Joshua Bates Discharge Orders/Prescriptions Prescriptions: New amiodarone 200 mg Tablet 200 mg PO TID Qty: 90 RF: 0 Continued mirtazapine 30 mg tablet 30 mg PO QHS RF: 0 cholecalciferol (vitamin D3) 2,000 unit capsule 2,000 unit PO DAILY RF: 0 memantine 10 mg tablet 10 mg PO BID RF: 0 famotidine [Pepcid AC] 10 mg tablet 10 mg PO DAILY PRN (Reason: Indigestion) RF: 0 cyanocobalamin (vitamin B-12) [Vitamin B-12] 1,000 mcg Tablet 1,000 mcg PO DAILY RF: 0 metoprolol succinate 100 mg tablet extended release 24 hr 100 mg PO DAILY RF: 0 potassium chloride 20 mEq tablet extended release 40 meq PO DAILY Qty: 90 RF: 3 citalopram 40 mg tablet 40 mg PO DAILY Qty: 1 RF: 0 (DME) compression stockings Knee High Qty: 2 RF: 0 apixaban 5 mg tablet 5 mg PO BID Qty: 180 RF: 3 Discontinued diltiazem HCl [Cartia XT] 180 mg capsule,extended release 24hr 180 mg PO DAILY Qty: 90 RF: 3 Referrals / Follow Up: Joshua Bates MD [STAFF PHYSICIAN] - Within 1 Month (Follow-up with nurse practitioner Jose Carrero) Navneet Alvarado MD [Primary Care Provider] - Disposition Disposition (needs filled in before D/C Order can be placed): Home, Self Care Charges/Coding Visit Charges Inpatient E&M: 56224 Disch Hosp
--- NOTE | 2021-03-27 13:47 | CASEMGMT ---
MARTHA RAVI updated by therapy that patient would benefit from HHC at discharge. MARTHA RAVI called , Jesica, regarding HHC. MARTHA RAVI provided list of HHC agencies over the phone in-network with patient's insurance. prefers [facility] as first choice, second choice [facility]. MARTHA RAVI sent referral to [facility] and awaiting call back. MARTHA RAVI updated hospitalist and nursing.
--- NOTE | 2021-03-27 14:36 | CASEMGMT ---
MARTHA RAVI received call back from [facility] and they are able to accept the patient with start of care for 03/29/21. MARTHA RAVI called and updated Jesica regarding [facility] setup for therapy. Jesica had no further questions or concerns at this time.
== END 2021-03-27 15:15 | disposition home or self-care (01) | DRG 309 ==
LOC: ED 14:24 → ICU 16:22
PROVIDERS: Admitting Provider Internal Medicine; Emergency Provider Emergency Medicine; PCP Family Medicine; Visit Provider Internal Medicine
DX: I48.19 Other persistent atrial fibrillation (principal); I24.8 Other forms of acute ischemic heart disease; I48.92 Unspecified atrial flutter; E03.9 Hypothyroidism, unspecified; E66.9 Obesity, unspecified; E78.2 Mixed hyperlipidemia; F32.9 Major depressive disorder, single episode, unspecified; E05.90 Thyrotoxicosis, unspecified without thyrotoxic crisis or storm; I25.10 Atherosclerotic heart disease of native coronary artery without angina pectoris; E11.22 Type 2 diabetes mellitus with diabetic chronic kidney disease; I12.9 Hypertensive chronic kidney disease with stage 1 through stage 4 chronic kidney disease, or unspecified chronic kidney disease; N18.31 Chronic kidney disease, stage 3a; K21.9 Gastro-esophageal reflux disease without esophagitis; I95.9 Hypotension, unspecified; Z66 Do not resuscitate; F03.90 Unspecified dementia, unspecified severity, without behavioral disturbance, psychotic disturbance, mood disturbance, and anxiety; Z86.73 Personal history of transient ischemic attack (TIA), and cerebral infarction without residual deficits; Z68.31 Body mass index [BMI] 31.0-31.9, adult; Z79.01 Long term (current) use of anticoagulants; Z79.899 Other long term (current) drug therapy
CPT/HCPCS: 70450; 71045; 80048; 80053; 81001; 82962; 83605; 83735; 84443; 84484; 85025; 85610; 85730; 87040; 87086; 87088; 93005; 97162; 97166; 99285; J7030; A4216

== ENCOUNTER → 2021-07-27 13:42 | Outpatient (CLI) | payer MEDICARE, SELFPAY ==
[2021-07-27 14:58] LABS: T4 Free Direct 1.06 ng/dL (0.76-1.46); Thyroid Stim Hormone (TSH) 2.93 uIU/mL (0.358-3.74)
== END ==
PROVIDERS: PCP Family Medicine; Referring Provider Nurse Practitioner Family; Visit Provider Nurse Practitioner Family
DX: R94.6 Abnormal results of thyroid function studies (principal); Z79.899 Other long term (current) drug therapy
CPT/HCPCS: 36415; 84439; 84443

== ENCOUNTER 2022-02-14 13:53 | Emergency (ER) | payer MEDICARE, SELFPAY ==
[2022-02-14 13:53] VITALS: BP 144/113; PULSE 57; RESP 18; TEMP 36.6; O2SAT 96; BMI 25.8
--- NOTE | 2022-02-14 14:38 | CT_ITS ---
STUDY: CT BRAIN WITHOUT CONTRAST REASON FOR EXAM: Male, 82 years old. Fall RADIATION DOSAGE (If Supplied By Facility): CTDIvol = ( 47.06 ) mGy, DLP = ( 1780.65 ) mGycm TECHNIQUE: Transaxial CT imaging of the brain was performed without administration of intravenous contrast material. Individualized dose optimization techniques were used for this CT. COMPARISON: Comparison is made with prior study dated 03/25/2021. FINDINGS: Normal soft tissue structures. Normal calvarium. There is a 4 mm hyperdensity in the medial aspect of the right frontal lobe adjacent to the cerebral falx in the high images of the right frontal lobe with surrounding edema. This may represent a focal hemorrhagic contusion. There is moderate cerebral atrophy with widening of the extra-axial spaces and ventricular dilatation. There are areas of decreased attenuation within the white matter tracts of the supratentorial brain, consistent with microvascular disease changes. Lacunar infarcts in the basal ganglia bilaterally. Normal brainstem. Normal cerebellum. There is no intracranial hemorrhage. There are no findings of an acute ischemic infarction. Atherosclerotic plaque formation of the vertebral arteries and cavernous portions of the internal carotid arteries bilaterally. Normal visualized paranasal sinuses. CT/Brain/Head without Contrast IMPRESSION: Findings suggestive of focal hemorrhagic contusion along the medial aspect of the vertex of the right frontal lobe with surrounding edema. Electronically Signed: Krishna Griffiths MD at 15:29 EDT ,
--- NOTE | 2022-02-14 14:41 | EKG12_ITS ---
Test Reason : FALL Blood Pressure : / mmHG Vent. Rate : 057 BPM Atrial Rate : 057 BPM P-R Int : 256 ms QRS Dur : 098 ms QT Int : 492 ms P-R-T Axes : 147 -11 -24 degrees QTc Int : 478 ms Unusual P axis, possible ectopic atrial bradycardia Low voltage QRS (Limb Leads) Nonspecific T wave abnormality Abnormal ECG Confirmed by PASCALE MIX, BITA ([id number]), book or script editor ALINE ZAMORA ([id number]) on 02/18/2022 1:25:46 PM Referred By: YUMIKO Confirmed By:BITA ASHRAF MD
[2022-02-14 14:56] LABS: Absolute Lymphocyte Count 0.46 X10^3/uL (0.83-4.51); Absolute Neutrophil Count 5.7 X10^3/uL (2.0-7.7); Basophil# 0.03 X10^3/uL; Basophil% 0.4 % (0-1); Eosinophil# 0.12 X10^3/uL; Eosinophils% 1.7 % (0-5); Hematocrit 40.4 % (40-54); Hemoglobin 13.6 g/dL (13.0-16.5); Lymphocyte # 0.46 X10^3/ul (0.83-4.51); Lymphocyte % 6.3 % (19-41); Mean Corp Hgb Conc 33.7 g/dL (32-36); Mean Corpuscular Hgb 32.5 pg (27.0-32.0); Mean Corpuscular Volume 96.4 fL (80-94); Mean Platelet Vol. 9.5 fl (6.2-12.0); Monocyte% 12.4 % (0-10); NRBC Flagged by Analyzer 0 % (0-5); Neutrophil # 5.73 X10^3/uL (2.7-7.7); Neutrophil % 78.9 % (47-70); POSITIVE DIFFERENTIAL YES; Platelet Count 190 K/mm3 (150-450); RBC Distribution Width CV 13.8 % (11.6-14.6); RBC Distribution Width SD 49.1 fl (35.1-43.9); Red Blood Count 4.19 M/mm3 (4.6-6.2); White Blood Count 7.3 K/mm3 (4.4-11.0)
[2022-02-14 14:58] LABS: Differential Indicated SCAN CRITERIA MET
[2022-02-14 15:09] LABS: Anion Gap 3 (5-15); BUN 31 mg/dL (7-18); BUN/Creat Ratio 17.6 RATIO (10-20); Calcium,Total 9.3 mg/dL (8.5-10.1); Chloride 110 mmol/L (98-107); Creatinine, Serum 1.76 mg/dL (0.70-1.30); EST Glomerular Filtration Rate 39 mL/min (>60); Est Glom Filt Rate - Afr Amer 48 mL/min (>60); Estimated Creatinine Clearance 31.24 ml/min; Glucose 83 mg/dL (74-106); Sodium Level 142 mmol/L (136-145)
--- NOTE | 2022-02-14 15:15 | RAD_ITS ---
STUDY: X-RAY - UNILATERAL RIBS ( RIGHT ) WITH CHEST REASON FOR EXAM: Male, 82 years old. Fall TECHNIQUE - RIBS: 4 view(s) of the ribs. TECHNIQUE - CHEST: Single PA view of the chest. COMPARISON: None. FINDINGS - RIBS: Nondisplaced fractures of the right fourth fifth and sixth ribs anterolaterally. FINDINGS - CHEST: Mild linear atelectasis at the right lung base. There is no demonstrated pleural abnormality. There is moderate cardiac enlargement. Normal mediastinum and brandee. Normal visualized pulmonary arteries. Normal visualized aortic arch and descending thoracic aorta. Normal visualized thoracic spine. Normal visualized ribs, clavicles, and shoulders. There is no demonstrated abnormality of the visualized soft tissue structures of the upper abdomen. RAD/Ribs Uni Min 3V w/PA Chest IMPRESSION: RIBS: Nondisplaced fractures of the right fourth fifth and sixth ribs anterolaterally. Minimal linear atelectasis at the right lung base. CHEST: Normal x-ray examination of the chest. Electronically Signed: Krishna Griffiths MD at 15:33 EDT ,
[2022-02-14 15:38] LABS: Burr Cells 1+; Ovalocyte 1+
[2022-02-14 15:50] LABS: Bacteria 0 SEEN /hpf (None Seen); Mucous, Urine 0 SEEN /hpf (<or=2+)
--- NOTE | 2022-02-14 15:53 | CT_ITS ---
STUDY: CT CERVICAL SPINE WITHOUT CONTRAST REASON FOR EXAM: Male, 82 years old. Fall RADIATION DOSAGE (If Supplied By Facility): CTDIvol = ( 18.23 ) mGy, DLP = ( 335.17 ) mGycm TECHNIQUE: High resolution transaxial imaging was performed without contrast material. Sagittal and coronal images were reconstructed. Individualized dose optimization techniques were used for this CT. COMPARISON: None FINDINGS: Normal craniovertebral junction. There are degenerative changes of the anterior atlantoaxial articulation. Normal odontoid process. Normal cervical lordosis. There is multilevel disc space narrowing and facet hypertrophy. C2-3: There is endplate spondylosis. Normal disc height and morphology. Normal central canal and intervertebral neuroforamina. C3-4: There is endplate spondylosis. There is a facet hypertrophy associated with stenosis of the left intervertebral neuroforamina. C4-5: There is a posterior disc osteophyte associated with stenosis of the central canal and bilateral narrowing of the intervertebral neuroforamina. C5-6: There is a posterior disc osteophyte associated with stenosis of the central canal and narrowing of the right intervertebral neuroforamina. C6-7: There is a posterior disc osteophyte. Normal central canal and intervertebral neuroforamina. C7-T1: There is endplate spondylosis. Normal central canal and intervertebral neuroforamina. There are vascular calcifications. CT/Spine Cervical without Contras IMPRESSION: Multilevel degenerative changes, as described above. Atherosclerosis. Electronically Signed: Mel Horn MD at 17:03 EDT ,
[2022-02-14 15:56] LABS: Color, Urine Yellow (Yellow); Glucose, Dipstick Normal (Normal); Ketone-Dipstick Negative (Negative); Leukocyte Esterase-Dipstick 25 /ul (Negative); Nitrite-Dipstick Negative (Negative); Occult Blood-Urine 25 /ul (Negative); Protein-Dipstick Negative (Negative); Urine Bilirubin Dipstick Negative (Negative); Urine Clarity Clear (Clear); Urine Urobilinogen Normal (Normal)
[2022-02-14 16:11] LABS: Red Blood Cells-Urine 0-5 SEEN /hpf (0-5); Squamous Epithelial Cells - UA 0-5 SEEN /hpf (0-5); White Blood Cells 0-5 SEEN /hpf (0-5)
--- NOTE | 2022-02-14 16:15 | RAD_ITS ---
STUDY: X-RAY - PELVIS REASON FOR EXAM: Male, 82 years old. Fall TECHNIQUE: One view of the pelvis was obtained. COMPARISON: None. FINDINGS: There is a non-specific bowel gas pattern. Normal visualized soft tissue structures. Normal bilateral iliac wings, sacroiliac joints and visualized sacrum. Normal visualized bilateral superior and inferior pubic rami. There are degenerative changes of the pubic symphysis with articular narrowing and sclerosis. Normal ischial tuberosities. There are degenerative changes of the hips characterized by joint space narrowing and subchondral sclerosis. RAD/Pelvis 1 or 2 Views IMPRESSION: Degenerative changes. Electronically Signed: Mel Horn MD at 17:04 EDT ,
[2022-02-14 16:18] VITALS: BP 163/91; PULSE 62; RESP 18; O2SAT 96
[2022-02-14 16:28] VITALS: BP 181/97; PULSE 63; RESP 20; O2SAT 95
--- NOTE | 2022-02-14 16:29 | EDS_ITS ---
HPI <VIRAL Payton - Last Filed: 02/14/22 16:35> History of Present Illness Chief Complaint: Fall Narrative Narrative: 82-year-old male with history of hypertension, dementia, atrial fibrillation on Eliquis presents the emergency department with decline of health. Patient over the last several weeks has been falling continuously, patient's who is also elderly, lives with him and states that she cannot pick him up and care for him anymore. They were discussing placement. Nrioyak-noew-mnj is also a risk because he is on blood thinners. Patient complains of pain to his right chest. Patient denies any fevers or chills. Patient is alert and oriented x1. She states that this is baseline for the patient recently. PFS <VIRAL Payton - Last Filed: 02/14/22 16:35> [facility] Medical History (Reviewed 07/27/21 @ 13:11 by Jose Ingram COMMERCIAL SALES SPECIALIST, COMMERCIAL SALES SPECIALIST-C) Atrial fibrillation Body mass index (bmi) 29.0-29.9, adult Bradycardia Depression Essential (primary) hypertension Hyperlipidemia Hypertension Hyperthyroidism Obesity Persistent atrial fibrillation Right ventricular dilation, secondary Right ventricular systolic dysfunction Syncope TIA (transient ischemic attack) Vascular dementia Home Medications mirtazapine 30 mg tablet 30 mg PO QHS 12/15/17 [History Last Taken Unknown] cholecalciferol (vitamin D3) 50 mcg (2,000 unit) capsule 2,000 unit PO DAILY 07/14/18 [History Last Taken Unknown] compression stockings #2 ea 04/16/19 [Rx Last Taken Unknown] famotidine 10 mg tablet 10 mg PO DAILY PRN 12/29/20 [History Last Taken Unknown] memantine 10 mg tablet 10 mg PO BID tablet 12/29/20 [History Last Taken Unknown] cyanocobalamin (vitamin B-12) [Vitamin B-12] 1,000 mcg PO DAILY 03/25/21 [Hist ory Last Taken Unknown] potassium chloride 20 mEq tablet,extended release 20 meq PO DAILY tab 04/17/21 [History Last Taken Unknown] amiodarone 200 mg tablet 200 mg PO DAILY #90 tab 10/11/21 [Rx Last Taken Unknown] apixaban 5 mg tablet 5 mg PO BID #180 tab 10/11/21 [Rx Last Taken Unknown] metoprolol succinate 100 mg tablet,extended release 24 hr See Rx Instructions .ROUTE .COMPLEX #90 tablet 10/11/21 [Rx Last Taken Unknown] duloxetine 60 mg PO DAILY 02/14/22 [History Last Taken Unknown] Allergy/AdvReac Type Severity Reaction Status Date / Time No Known Allergies Allergy Verified 02/14/22 13:56 Family History (Reviewed 07/27/21 @ 13:11 by Jose Ingram COMMERCIAL SALES SPECIALIST, COMMERCIAL SALES SPECIALIST-C) Mother Diabetes CVA (cerebral vascular accident) Father Myocardial infarction CAD (coronary artery disease) Sister Diabetes Son Hypertension Daughter Thyroid disorder hyperthyroid Diabetes Daughter Diabetes Daughter Thyroid disorder hypothyroid Surgical History History of hemorrhoidectomy History of tonsillectomy and adenoidectomy Social History Smoking Status: Never smoker how long ago did patient quit smokin alcohol intake: current alcohol intake frequency: holidays/special occasions only Alcohol type: wine substance use type: does not use caffeine: Yes Type: coffee Number of servings: 3 what type of physical activity do you participate in: none seatbelt use: always do you feel safe at home: Yes ROS <VIRAL Payton - Last Filed: 02/14/22 16:35> [facility] ROS Narrative Constitutional: Negative for fever, chills, weight loss. Positive for weakness, frequent falls Eyes: Negative for vision loss, vision change, double vision ENT: Negative for any sore throat, ear pain, congestion Cardiovascular: Negative for any chest pain, tightness, palpitations, racing heartbeat Respiratory: Negative for any cough, sputum production, hemoptysis, shortness of breath, shortness of breath on exertion, orthopnea Gastrointestinal: Negative for any abdominal pain, nausea, vomiting, diarrhea, constipation, blood in stool, blood in vomit : Negative for any urinary frequency, incontinence, dysuria, retention, blood in urine Muscle skeletal: Negative for any muscle joint pain, stiffness, myalgias, arthralgias, neck pain, back pain. Positive for right-sided chest pain, right rib pain Neurological: Negative for any headache, dizziness, syncope, numbness or tingling Skin: Negative for any rashes, lumps, itching, abrasions, lacerations Psychiatric: Negative for any depression, anxiety, stress, suicidal ideation, homicidal ideation Hematologic: Negative for any easy bruising, excessive bruising, easy bleeding Allergies: Negative for any eczema, hives, rash EXAM <VIRAL Payton - Last Filed: 02/14/22 16:35> Physical Exam Narrative Exam Narrative: Vital signs reviewed. Patient is alert and oriented x1, patient is moving all extremities. HEET: Head normocephalic atraumatic, TMs clear bilaterally. Posterior pharynx is clear, moist mucous membranes. Nares clear bilaterally. Pupils are equal round reactive to light, negative for any hematoma. Neck: Supple with no lymphadenopathy or tenderness. No signs of meningismus, negative jolt sign. Cardiac: Regular rate and rhythm no murmurs gallops or rubs, equal peripheral pulses bilaterally. Respiratory: Lungs clear to auscultation bilaterally. Patient does have right-s ided chest tenderness Abdomen: Soft, nontender, nondistended. No abdominal bruit or pulsatile masses. No hepatosplenomegaly Extremities: No peripheral edema, no signs of gross trauma or deformity. Active full range of motion of all extremities. Patient does have bruising to the right arm in multiple stages of healing Neuro: Cranial nerves II through XII intact, no focal neurological deficits. Skin: Clean dry and intact with no rash, purpura, petechiae, vesicles or pustules. Backslash flank: No CVA tenderness, no midline spinal tenderness, no deformity. Psych: Normal mood and affect. No SI, HI or acute psychosis. Const Vital Signs: 02/14/22 13:53 02/14/22 16:18 02/14/22 16:28 Temperature 98 F Temperature Source Temporal Pulse Rate 57 L 62 63 Respiratory Rate 18 18 20 H Blood Pressure 144/113 H 163/91 H 181/97 H Blood Pressure Mean 123 115 125 Pulse Ox 96 96 95 Oxygen Delivery Method Room Air Room Air <Ranjan Irizarry MD - Last Filed: 02/14/22 22:08> Physical Exam Const Vital Signs: 02/14/22 13:53 02/14/22 16:18 02/14/22 16:28 Temperature 98 F Temperature Source Temporal Pulse Rate 57 L 62 63 Respiratory Rate 18 18 20 H Blood Pressure 144/113 H 163/91 H 181/97 H Blood Pressure Mean 123 115 125 Pulse Ox 96 96 95 Oxygen Delivery Method Room Air Room Air MDM <Jesus oMyer VIRAL - Last Filed: 02/14/22 16:35> [facility] Narrative Medical decision making narrative: Patient arrives confused however in no distress, patient's vital signs are stable. Patient presents to the emergency department for worsening weakness, frequent falls, possible placement. Patient did receive basic laboratory values, patient CBC was unremarkable, patient's chemistries were unremarkable, patient's urinalysis was negative for infection. Patient CT of the brain shows that the findings are suggestive of focal hemorrhagic contusion along the medial aspect of the vortex of the right frontal lobe with surrounding edema. Patient's x-ray of the right rib series shows no ndisplaced fractures of the right fourth fifth and sixth ribs anterolaterally. Due to these findings, patient will need to be transferred to a level 1 trauma center. I did speak with Dr. Velasquez the ER physician at [facility], she will accept the patient. She did request CT scan of the cervical spine, bilateral hip x-rays. The patient received these radiology exams, she also requested a disc which the radiologic exams we placed on. Patient family made aware, patient will be transferred Lab Data Labs: Laboratory Results - last 24 hr 02/14/22 02/14/22 02/14/22 14:50 14:50 15:45 WBC 7.3 RBC 4.19 L Hgb 13.6 Hct 40.4 MCV 96.4 H MCH 32.5 H MCHC 33.7 RDW Std Deviation 49.1 H RDW Coeff of Monica 13.8 Plt Count 190 MPV 9.5 Immature Gran % (Auto) 0.300 Neut % (Auto) 78.9 H Lymph % (Auto) 6.3 L [place] % (Auto) 12.4 H Eos % (Auto) 1.7 Baso % (Auto) 0.4 Absolute Neuts (auto) 5.7 Absolute Lymphs (auto) 0.46 L Nucleated RBC % 0 [address] Path Review May foll Ovalocytes 1+ Mirta Cells 1+ Sodium 142 Potassium 4.0 Chloride 110 H Carbon Dioxide 29.0 Anion Gap 3 L BUN 31 H Creatinine 1.76 H Estim Creat Clear Calc 31.24 Est GFR (MDRD) Af Amer 48 L Est GFR (MDRD) Non-Af 39 L BUN/Creatinine Ratio 17.6 Glucose 83 Calcium 9.3 Urine Color Yellow Urine Clarity Clear Urine pH 5.0 Ur Specific Dale 1.020 Urine Protein Negative Urine Glucose (UA) Normal Urine Ketones Negative Urine Occult Blood 25 H Urine Nitrite Negative Urine Bilirubin Negative Urine Urobilinogen Normal Ur Leukocyte Esterase 25 H Urine RBC 0-5 SEEN Urine WBC 0-5 SEEN Ur Squamous Epith Cells 0-5 SEEN Urine Bacteria 0 SEEN Urine Mucus 0 SEEN Radiography Diagnostic Testing: Clinical Impression(s) from Imaging Studies Brain CT 02/14/22 14:38 IMPRESSION: Findings suggestive of focal hemorrhagic contusion along the medial aspect of the vertex of the right frontal lobe with surrounding edema. Electronically Signed: Krishna Griffiths MD at 15:29 EDT , Ribs w/Chest X-Ray 02/14/22 15:15 IMPRESSION: RIBS: Nondisplaced fractures of the right fourth fifth and sixth ribs anterolaterally. Minimal linear atelectasis at the right lung base. CHEST: Normal x-ray examination of the chest. Electronically Signed: Krishna Griffiths MD at 15:33 EDT , Cervical Spine CT 02/14/22 15:53 IMPRESSION: Multilevel degenerative changes, as described above. Atherosclerosis. Electronically Signed: Mel Horn MD at 17:03 EDT , Pelvis X-Ray 02/14/22 16:15 IMPRESSION: Degenerative changes. Electronically Signed: Mel Horn MD at 17:04 EDT , <Ranjan Irizarry MD - Last Filed: 02/14/22 22:08> MDM MDM Narrative Medical decision making narrative: I have personally performed a face to face assessment of the patient and have reviewed the LINDEN Note. I performed a substantive portion of the visit including all aspects of the following. My vargas findings include: History is frequent falls, on blood thinners, history of dementia. having difficulty taking care of patient at home. Exam is GCS 15. ABCs intact. Afebrile. Vital signs noted. Mild tenderness to palpation right ribs. Lungs clear to auscultation bilaterally. Regular rate and rhythm. Medical Decision Making check CT brain, check chest x-ray. Check labs. Given cerebral contusion with small amount of hemorrhage and 3 broken ribs, transfer to a level 1 trauma center. Family prefers [facility]. Transfer. Other additions or changes: [None] Lab Data Attestation: I reviewed the patient's lab results. Labs: Laboratory Results - last 24 hr 02/14/22 02/14/22 02/14/22 14:50 14:50 15:45 WBC 7.3 RBC 4.19 L Hgb 13.6 Hct 40.4 MCV 96.4 H MCH 32.5 H MCHC 33.7 RDW Std Deviation 49.1 H RDW Coeff of Monica 13.8 Plt Count 190 MPV 9.5 Immature Gran % (Auto) 0.300 Neut % (Auto) 78.9 H Lymph % (Auto) 6.3 L [place] % (Auto) 12.4 H Eos % (Auto) 1.7 Baso % (Auto) 0.4 Absolute Neuts (auto) 5.7 Absolute Lymphs (auto) 0.46 L Nucleated RBC % 0 [address] Path Review May foll Ovalocytes 1+ [place] Cells 1+ Sodium 142 Potassium 4.0 Chloride 110 H Carbon Dioxide 29.0 Anion Gap 3 L BUN 31 H Creatinine 1.76 H Estim Creat Clear Calc 31.24 Est GFR (MDRD) Af Amer 48 L Est GFR (MDRD) Non-Af 39 L BUN/Creatinine Ratio 17.6 Glucose 83 Calcium 9.3 Urine Color Yellow Urine Clarity Clear Urine pH 5.0 Ur Specific [place] 1.020 Urine Protein Negative Urine Glucose (UA) Normal Urine Ketones Negative Urine Occult Blood 25 H Urine Nitrite Negative Urine Bilirubin Negative Urine Urobilinogen Normal Ur Leukocyte Esterase 25 H Urine RBC 0-5 SEEN Urine WBC 0-5 SEEN Ur Squamous Epith Cells 0-5 SEEN Urine Bacteria 0 SEEN Urine Mucus 0 SEEN Radiography Diagnostic Testing: Clinical Impression(s) from Imaging Studies Brain CT 02/14/22 14:38 IMPRESSION: Findings suggestive of focal hemorrhagic contusion along the medial aspect of the vertex of the right frontal lobe with surrounding edema. Electronically Signed: Krishna Griffiths MD at 15:29 EDT , Ribs w/Chest X-Ray 02/14/22 15:15 IMPRESSION: RIBS: Nondisplaced fractures of the right fourth fifth and sixth ribs anterolaterally. Minimal linear atelectasis at the right lung base. CHEST: Normal x-ray examination of the chest. Electronically Signed: Krishna Griffiths MD at 15:33 EDT , Cervical Spine CT 02/14/22 15:53 IMPRESSION: Multilevel degenerative changes, as described above. Atherosclerosis. Electronically Signed: Mel Horn MD at 17:03 EDT , Pelvis X-Ray 02/14/22 16:15 IMPRESSION: Degenerative changes. Electronically Signed: Mel Horn MD at 17:04 EDT , <VIRAL Payton - Last Filed: 02/14/22 16:35> Critical Care Time Critical care time (excluding procedures): 30-74 minutes Discharge Plan Triage Chief Complaint: Fall ED Midlevel Provider: Jesus Moyer ED Provider: Ranjan Irizarry Dx/Rx/DC Orders Clinical Impression: Frequent falls, Dementia, Cerebral contusion, Anticoagulation adequate, Fracture, ribs Prescriptions: No Action mirtazapine 30 mg tablet 30 mg PO QHS RF: 0 cholecalciferol (vitamin D3) 2,000 unit capsule 2,000 unit PO DAILY RF: 0 memantine 10 mg tablet 10 mg PO BID RF: 0 famotidine [Pepcid AC] 10 mg tablet 10 mg PO DAILY PRN (Reason: Indigestion) RF: 0 potassium chloride 20 mEq tablet extended release 20 meq PO DAILY RF: 0 cyanocobalamin (vitamin B-12) [Vitamin B-12] 1,000 mcg Tablet 1,000 mcg PO DAILY RF: 0 duloxetine 60 mg Capsule,Delayed Release(Dr/Ec) 60 mg PO DAILY RF: 0 (DME) compression stockings Knee High Qty: 2 RF: 0 amiodarone 200 mg tablet 200 mg PO DAILY Qty: 90 RF: 3 apixaban 5 mg tablet 5 mg PO BID Qty: 180 RF: 3 metoprolol succinate 100 mg tablet extended release 24 hr See Rx Instructions .ROUTE .COMPLEX Qty: 90 RF: 3 Primary Care Provider: Navneet Alvarado Referrals: Navneet Alvarado MD [Primary Care Provider] - Disposition Disposition: Transfer to Another Type F Discharge Location: [facility] Discharge Date/Time: 02/14/22 17:57
[2022-02-15 13:27] LABS: Pathologist Review Reviewed
== END 2022-02-14 17:57 | disposition other institution (70) ==
PROVIDERS: Nurse Practitioner; Emergency Provider Emergency Medicine; PCP Family Medicine; Visit Provider Emergency Medicine
DX: F03.90 Unspecified dementia, unspecified severity, without behavioral disturbance, psychotic disturbance, mood disturbance, and anxiety (principal); I48.91 Unspecified atrial fibrillation; S06.2X9A Diffuse traumatic brain injury with loss of consciousness of unspecified duration, initial encounter; S22.49XA Multiple fractures of ribs, unspecified side, initial encounter for closed fracture; F32.A Depression, unspecified; I10 Essential (primary) hypertension; Z86.73 Personal history of transient ischemic attack (TIA), and cerebral infarction without residual deficits; Z79.899 Other long term (current) drug therapy; W19.XXXA Unspecified fall, initial encounter
CPT/HCPCS: 70450; 71101; 72125; 72170; 80048; 81001; 85025; 93005; 99285; A4216

== ENCOUNTER → 2022-02-21 | Outpatient (REF) | payer SELFPAY ==
[2022-02-21 08:46] LABS: Absolute Lymphocyte Count 0.37 X10^3/uL (0.83-4.51); Absolute Neutrophil Count 3.6 X10^3/uL (2.0-7.7); Basophil# 0.02 X10^3/uL; Basophil% 0.4 % (0-1); Eosinophil# 0.32 X10^3/uL; Eosinophils% 6.3 % (0-5); Hematocrit 38.8 % (40-54); Hemoglobin 12.8 g/dL (13.0-16.5); Lymphocyte # 0.37 X10^3/ul (0.83-4.51); Lymphocyte % 7.3 % (19-41); Mean Corpuscular Hgb 32.1 pg (27.0-32.0); Mean Corpuscular Volume 97.2 fL (80-94); Mean Platelet Vol. 10.4 fl (6.2-12.0); Monocyte# 0.65 X10^3/uL; Monocyte% 12.9 % (0-10); NRBC Flagged by Analyzer 0 % (0-5); Neutrophil # 3.63 X10^3/uL (2.7-7.7); Neutrophil % 72.1 % (47-70); POSITIVE DIFFERENTIAL YES; Platelet Count 194 K/mm3 (150-450); RBC Distribution Width CV 14.2 % (11.6-14.6); RBC Distribution Width SD 50.6 fl (35.1-43.9); Red Blood Count 3.99 M/mm3 (4.6-6.2)
[2022-02-21 08:56] LABS: Vitamin B12 937 pg/mL (211-911); Vitamin D,25 Hydroxy 53.7 ng/mL
[2022-02-21 08:58] LABS: Differential Indicated SCAN CRITERIA MET
[2022-02-21 09:03] LABS: ALB/GLOB Ratio 0.7 RATIO (0.9-2.4); AST(SGOT) 52 U/L (15-37); Alanine Aminotransfer ALT/SGPT 69 U/L (16-61); Albumin, Serum 2.5 g/dL (3.2-5.0); Alkaline Phosphatase 102 U/L (45-117); Anion Gap 6 (5-15); BUN 15 mg/dL (7-18); BUN/Creat Ratio 16.5 RATIO (10-20); CPK Total, Creatine Kinase 165 U/L (39-308); Calcium,Total 8.4 mg/dL (8.5-10.1); Chloride 109 mmol/L (98-107); Creatinine, Serum 0.91 mg/dL (0.70-1.30); EST Glomerular Filtration Rate 85 mL/min (>60); Est Glom Filt Rate - Afr Amer 102 mL/min (>60); Globulin 3.4 g/dL (2.2-4.2); Glucose 96 mg/dL (74-106); Potassium 3.4 mmol/L (3.5-5.1); Protein, Total 5.9 g/dL (6.4-8.2); Sodium Level 142 mmol/L (136-145); Thyroid Stim Hormone (TSH) 1.85 uIU/mL (0.358-3.74)
[2022-02-21 09:22] LABS: Differential Comment SCANNED
== END | disposition home or self-care (01) ==
LOC: OLS.SW1020 05:00
PROVIDERS: PCP Family Medicine; Referring Provider Internal Medicine; Visit Provider Internal Medicine
DX: R41.0 Disorientation, unspecified (principal)
CPT/HCPCS: 80053; 82306; 82550; 82607; 83735; 84443; 85025

== ENCOUNTER → 2022-02-25 | Outpatient (REF) | payer SELFPAY ==
[2022-02-25 08:47] LABS: Absolute Lymphocyte Count 0.52 X10^3/uL (0.83-4.51); Absolute Neutrophil Count 6.5 X10^3/uL (2.0-7.7); Basophil# 0.03 X10^3/uL; Basophil% 0.4 % (0-1); Eosinophil# 0.33 X10^3/uL; Hematocrit 37.6 % (40-54); Hemoglobin 12.5 g/dL (13.0-16.5); Lymphocyte # 0.52 X10^3/ul (0.83-4.51); Lymphocyte % 6.3 % (19-41); Mean Corp Hgb Conc 33.2 g/dL (32-36); Mean Corpuscular Hgb 31.9 pg (27.0-32.0); Mean Corpuscular Volume 95.9 fL (80-94); Mean Platelet Vol. 9.8 fl (6.2-12.0); Monocyte# 0.82 X10^3/uL; Monocyte% 9.9 % (0-10); NRBC Flagged by Analyzer 0 % (0-5); Neutrophil # 6.54 X10^3/uL (2.7-7.7); Neutrophil % 78.9 % (47-70); POSITIVE DIFFERENTIAL YES; Platelet Count 264 K/mm3 (150-450); RBC Distribution Width CV 14.3 % (11.6-14.6); RBC Distribution Width SD 50.4 fl (35.1-43.9); Red Blood Count 3.92 M/mm3 (4.6-6.2); White Blood Count 8.3 K/mm3 (4.4-11.0)
[2022-02-25 08:48] LABS: Differential Indicated SCAN CRITERIA MET
[2022-02-25 08:54] LABS: Anion Gap 6 (5-15); BUN 16 mg/dL (7-18); BUN/Creat Ratio 14.2 RATIO (10-20); Chloride 107 mmol/L (98-107); Creatinine, Serum 1.13 mg/dL (0.70-1.30); EST Glomerular Filtration Rate 66 mL/min (>60); Est Glom Filt Rate - Afr Amer 80 mL/min (>60); Glucose 105 mg/dL (74-106); Magnesium 2.1 mg/dL (1.6-2.6); Potassium 4.2 mmol/L (3.5-5.1); Sodium Level 138 mmol/L (136-145)
== END | disposition home or self-care (01) ==
LOC: OLS.SW1020 05:00
PROVIDERS: PCP Family Medicine; Visit Provider Internal Medicine
DX: R00.1 Bradycardia, unspecified (principal)
CPT/HCPCS: 36415; 80048; 83735; 85025

== ENCOUNTER → 2022-03-05 | Outpatient (REF) | payer SELFPAY ==
[2022-03-05 08:55] LABS: Absolute Lymphocyte Count 0.87 X10^3/uL (0.83-4.51); Absolute Neutrophil Count 6.6 X10^3/uL (2.0-7.7); Basophil# 0.05 X10^3/uL; Basophil% 0.6 % (0-1); Eosinophil# 0.38 X10^3/uL; Eosinophils% 4.4 % (0-5); Hematocrit 45.5 % (40-54); Hemoglobin 14.8 g/dL (13.0-16.5); Lymphocyte # 0.87 X10^3/ul (0.83-4.51); Mean Corp Hgb Conc 32.5 g/dL (32-36); Mean Corpuscular Hgb 31.6 pg (27.0-32.0); Mean Platelet Vol. 9.8 fl (6.2-12.0); Monocyte# 0.71 X10^3/uL; Monocyte% 8.2 % (0-10); NRBC Flagged by Analyzer 0 % (0-5); Neutrophil # 6.64 X10^3/uL (2.7-7.7); Neutrophil % 76.1 % (47-70); Platelet Count 378 K/mm3 (150-450); RBC Distribution Width CV 14.4 % (11.6-14.6); RBC Distribution Width SD 51.8 fl (35.1-43.9); Red Blood Count 4.69 M/mm3 (4.6-6.2); White Blood Count 8.7 K/mm3 (4.4-11.0)
[2022-03-05 09:26] LABS: Anion Gap 8 (5-15); BUN 16 mg/dL (7-18); BUN/Creat Ratio 13.4 RATIO (10-20); Calcium,Total 9.5 mg/dL (8.5-10.1); Chloride 104 mmol/L (98-107); Creatinine, Serum 1.19 mg/dL (0.70-1.30); EST Glomerular Filtration Rate 62 mL/min (>60); Est Glom Filt Rate - Afr Amer 75 mL/min (>60); Glucose 77 mg/dL (74-106); Magnesium 2.1 mg/dL (1.6-2.6); Potassium 3.9 mmol/L (3.5-5.1); Sodium Level 137 mmol/L (136-145)
== END | disposition home or self-care (01) ==
LOC: OLS.SW1020 04:00
PROVIDERS: PCP Family Medicine; Referring Provider Internal Medicine; Visit Provider Internal Medicine
DX: S06.360D Traumatic hemorrhage of cerebrum, unspecified, without loss of consciousness, subsequent encounter (principal); N17.9 Acute kidney failure, unspecified; N13.4 Hydroureter; E87.6 Hypokalemia; R00.1 Bradycardia, unspecified; E55.9 Vitamin D deficiency, unspecified
CPT/HCPCS: 36415; 80048; 82306; 83735; 85025

== ENCOUNTER 2022-03-10 22:33 | Emergency (ER) | payer MEDICARE, SELFPAY ==
[2022-03-10 22:35] VITALS: PULSE 54; RESP 18; TEMP 36.2; O2SAT 96; BMI 27.4
--- NOTE | 2022-03-10 22:44 | EDS_ITS ---
HPI History of Present Illness Chief Complaint: Hunt C/O Informant: EMS and SNF Pain Onset: Today Timing: Continuous Worsened by: Nothing Relieved by: Nothing Narrative Narrative: Patient presents with blood clots around his Hunt catheter that were noticed tonight. Patient has a history of dementia and is a very poor historian. half-way staff states that the patient was pulling on his Hunt catheter. Patient denies any dysuria or hematuria. Patient has a chronic indwelling Hunt catheter. half-way staff denies any fevers or chills. Patient denies any nausea or vomiting. [facility] Medical History Atrial fibrillation Body mass index (bmi) 29.0-29.9, adult Bradycardia Depression Essential (primary) hypertension Hyperlipidemia Hypertension Hyperthyroidism Obesity Persistent atrial fibrillation Right ventricular dilation, secondary Right ventricular systolic dysfunction Syncope TIA (transient ischemic attack) Vascular dementia Home Medications mirtazapine 30 mg tablet 30 mg PO QHS 12/15/17 [History Last Taken Unknown] cholecalciferol (vitamin D3) 50 mcg (2,000 unit) capsule 2,000 unit PO DAILY 07/14/18 [History Last Taken Unknown] compression stockings #2 ea 04/16/19 [Rx Last Taken Unknown] famotidine 10 mg tablet 10 mg PO DAILY PRN 12/29/20 [History Last Taken Unknown] memantine 10 mg tablet 10 mg PO BID tablet 12/29/20 [History Last Taken Unknown] cyanocobalamin (vitamin B-12) [Vitamin B-12] 1,000 mcg PO DAILY 03/25/21 [History Last Taken Unknown] potassium chloride 20 mEq tablet,extended release 20 meq PO DAILY tab 04/17/21 [History Last Taken Unknown] amiodarone 200 mg tablet 200 mg PO DAILY #90 tab 10/11/21 [Rx Last Taken Unknown] duloxetine 60 mg PO DAILY 02/14/22 [History Last Taken Unknown] apixaban [Eliquis] 5 mg PO BID 03/10/22 [History Last Taken Unknown] melatonin 3 mg PO QHS 03/10/22 [History Last Taken Unknown] metoprolol succinate 75 mg PO DAILY 03/10/22 [History Last Taken Unknown] Allergy/AdvReac Type Severity Reaction Status Date / Time No Known Allergies Allergy Verified 02/14/22 13:56 Family History (Reviewed 07/27/21 @ 13:11 by Jose Ingram [employer] RECEIVER, [employer]CE[employer]-C) Mother Diabetes CVA (cerebral vascular accident) Father Myocardial infarction CAD (coronary artery disease) Sister Diabetes Son Hypertension Daughter Thyroid disorder hyperthyroid Diabetes Daughter Diabetes Daughter Thyroid disorder hypothyroid Surgical History History of hemorrhoidectomy History of tonsillectomy and adenoidectomy Social History Smoking Status: Never smoker how long ago did patient quit smokin alcohol intake: current alcohol intake frequency: holidays/special occasions only Alcohol type: wine substance use type: does not use caffeine: Yes Type: coffee Number of servings: 3 what type of physical activity do you participate in: none seatbelt use: always do you feel safe at home: Yes ROS ROS ED Review of Systems ROS Unobtainable: due to mental condition EXAM Physical Exam Const Vital Signs: 03/10/22 22:35 03/10/22 22:49 Temperature 97.1 F L Temperature Source Temporal Pulse Rate 54 L Respiratory Rate 18 Blood Pressure 116/78 Blood Pressure Mean 90 Pulse Ox 96 Oxygen Delivery Method Room Air Positive well nourished and well developed General Appearance ED: well developed and NAD HEENT Reports moist mucous membranes Resp normal respiratory effort and clear to auscultation bilaterally Cardio regular rate and regular rhythm GI non-tender Palpation: soft Narrative: Hunt catheter is in place. There is dark urine draining from the catheter. Penis: normal penis Neuro CN's II-XII intact bilaterally, moves all extremities, no focal motor deficits and no sensory deficits noted Sensorium / Orientation: alert, oriented to person and confused; Negative for oriented to place or oriented to time MDM MDM MDM Narrative Medical decision making narrative: The balloon of the catheter was deflated and the catheter was inserted further. The balloon was reinflated. A blood clot was returned from the Hunt catheter. The catheter started draining dark urine. Urinalysis was obtained. Leukocyte esterase was 100 and occult blood was 250. There was greater than 100 red blood cells. There were only 5-10 white blood cells. There is rare bacteria. Urine culture was ordered. This does not appear to be a urinary tract infection. Patient will be discharged back to the extended care facility for follow-up care. Lab Data Labs: Laboratory Results - last 24 hr 03/10/22 22:45 Urine Color Hannah Urine Clarity Cloudy Urine pH 5.0 Ur Specific [place] 1.020 Urine Protein 100 H Urine Glucose (UA) Normal Urine Ketones 5 H Urine Occult Blood 250 H Urine Nitrite Negative Urine Bilirubin Negative Urine Urobilinogen Normal Ur Leukocyte Esterase 100 H Urine RBC > 100 SEEN Urine WBC 5-10 SEEN Ur Squamous Epith Cells 0 SEEN Urine Bacteria RARE Urine Mucus 0 SEEN Discharge Plan Triage Chief Complaint: Hunt C/O ED Provider: Afshin Modi Dx/Rx/DC Orders Clinical Impression: Hematuria, Dementia Instructions: ED Hunt Catheter, Care, ED Hematuria Prescriptions: No Action mirtazapine 30 mg tablet 30 mg PO QHS RF: 0 cholecalciferol (vitamin D3) 2,000 unit capsule 2,000 unit PO DAILY RF: 0 memantine 10 mg tablet 10 mg PO BID RF: 0 famotidine [Pepcid AC] 10 mg tablet 10 mg PO DAILY PRN (Reason: Indigestion) RF: 0 potassium chloride 20 mEq tablet extended release 20 meq PO DAILY RF: 0 cyanocobalamin (vitamin B-12) [Vitamin B-12] 1,000 mcg Tablet 1,000 mcg PO DAILY RF: 0 duloxetine 60 mg Capsule,Delayed Release(Dr/Ec) 60 mg PO DAILY RF: 0 metoprolol succinate 50 mg Tablet Extended Release 24 Hr 75 mg PO DAILY RF: 0 melatonin 3 mg Tablet 3 mg PO QHS RF: 0 Eliquis 5 mg tablet 5 mg PO BID RF: 0 (DME) compression stockings Knee High Qty: 2 RF: 0 amiodarone 200 mg tablet 200 mg PO DAILY Qty: 90 RF: 3 Primary Care Provider: Navneet Alvarado Referrals: Navneet Alvarado MD [Primary Care Provider] - 3-5 Days Disposition Disposition: Home, Self Care
[2022-03-10 22:49] VITALS: BP 116/78
[2022-03-10 22:50] LABS: Mucous, Urine 0 SEEN /hpf (<or=2+); Squamous Epithelial Cells - UA 0 SEEN /hpf (0-5)
[2022-03-10 22:52] LABS: Color, Urine Amber (Yellow); Glucose, Dipstick Normal (Normal); Ketone-Dipstick 5 mg/dl (Negative); Leukocyte Esterase-Dipstick 100 /ul (Negative); Nitrite-Dipstick Negative (Negative); Occult Blood-Urine 250 /ul (Negative); Protein-Dipstick 100 mg/dl (Negative); Urine Bilirubin Dipstick Negative (Negative); Urine Clarity Cloudy (Clear); Urine Urobilinogen Normal (Normal)
[2022-03-10 23:05] LABS: Bacteria RARE /hpf (None Seen); Red Blood Cells-Urine > 100 SEEN /hpf (0-5); White Blood Cells 5-10 SEEN /hpf (0-5)
--- NOTE | 2022-03-10 23:15 | NURSING ---
CALLED PHYSICIANS AT 2215 ETA 90MIN- 2HRS. THEY SAID THEY WILL TRY AND OUTSOURCE
== END 2022-03-10 23:36 | disposition skilled nursing facility (03) ==
PROVIDERS: Emergency Provider Emergency Medicine; PCP Family Medicine; Visit Provider Emergency Medicine
DX: R31.9 Hematuria, unspecified (principal); F01.50 Vascular dementia, unspecified severity, without behavioral disturbance, psychotic disturbance, mood disturbance, and anxiety; I48.19 Other persistent atrial fibrillation; I10 Essential (primary) hypertension; E78.5 Hyperlipidemia, unspecified; E05.90 Thyrotoxicosis, unspecified without thyrotoxic crisis or storm; E66.9 Obesity, unspecified; Z68.27 Body mass index [BMI] 27.0-27.9, adult; Z79.01 Long term (current) use of anticoagulants; Z79.899 Other long term (current) drug therapy; Z86.73 Personal history of transient ischemic attack (TIA), and cerebral infarction without residual deficits
CPT/HCPCS: 81001; 87077; 87086; 87088; 87186; 99284; A4216

== ENCOUNTER 2022-03-17 20:40 | Emergency (ER) | payer MEDICARE, SELFPAY ==
[2022-03-17 20:42] VITALS: BP 156/71; PULSE 84; TEMP 37.4; O2SAT 92; BMI 26.6
--- NOTE | 2022-03-17 20:55 | EX.ED.GUMALE ---
HPI History of Present Illness Chief Complaint: Hunt C/O Informant: patient and SNF Pain Onset: Today Context: Gradual Onset Timing: Continuous Current Severity: Mild Maximum Severity: Mild Narrative Narrative: 82-year-old male history of dementia he is unable to give any history. Sent in by the [facility] where he is at due to his Hunt catheter was not draining. I thought I was obstructed. They try to clear up unsuccessful. They replaced a Hunt catheter there was blood they were unable to obtain urine so they sent him in for evaluation. Patient is under hospice care. Has a history of A. fib on Eliquis. Prior TIA and dementia. Prior similar symptoms: Yes Recent Illness/Hospitalization: No [facility] Medical History Atrial fibrillation Body mass index (bmi) 29.0-29.9, adult Bradycardia Depression Essential (primary) hypertension Hyperlipidemia Hypertension Hyperthyroidism Obesity Persistent atrial fibrillation Right ventricular dilation, secondary Right ventricular systolic dysfunction Syncope TIA (transient ischemic attack) Vascular dementia Home Medications mirtazapine 30 mg tablet 30 mg PO QHS 12/15/17 [History Last Taken Unknown] cholecalciferol (vitamin D3) 50 mcg (2,000 unit) capsule 2,000 unit PO DAILY 07/14/18 [History Last Taken Unknown] compression stockings #2 ea 04/16/19 [Rx Last Taken Unknown] famotidine 10 mg tablet 10 mg PO DAILY PRN 12/29/20 [History Last Taken Unknown] memantine 10 mg tablet 10 mg PO BID tablet 12/29/20 [History Last Taken Unknown] cyanocobalamin (vitamin B-12) [Vitamin B-12] 1,000 mcg PO DAILY 03/25/21 [History Last Taken Unknown] potassium chloride 20 mEq tablet,extended release 20 meq PO DAILY tab 04/17/21 [History Last Taken Unknown] amiodarone 200 mg tablet 200 mg PO DAILY #90 tab 10/11/21 [Rx Last Taken Unknown] duloxetine 60 mg PO DAILY 02/14/22 [History Last Taken Unknown] apixaban [Eliquis] 5 mg PO BID 03/10/22 [History Last Taken Unknown] melatonin 3 mg PO QHS 03/10/22 [History Last Taken Unknown] metoprolol succinate 75 mg PO DAILY 03/10/22 [History Last Taken Unknown] acetaminophen 650 mg CO Q4H PRN 03/17/22 [History Last Taken Unknown] ciprofloxacin HCl [Cipro] 500 mg PO BID 10 Days #20 tab 03/17/22 [Rx Last Taken Unknown] lorazepam [Ativan] 0.5 mg PO Q4H PRN PRN 03/17/22 [History Last Taken Unknown] morphine concentrate 10 mg PO Q2H PRN PRN 03/17/22 [History Last Taken Unknown] Allergy/AdvReac Type Severity Reaction Status Date / Time amiodarone Allergy PT UNSURE Verified 03/17/22 20:46 OF REACTION Family History Mother Diabetes CVA (cerebral vascular accident) Father Myocardial infarction CAD (coronary artery disease) Sister Diabetes Son Hypertension Daughter Thyroid disorder hyperthyroid Diabetes Daughter Diabetes Daughter Thyroid disorder hypothyroid Surgical History History of hemorrhoidectomy History of tonsillectomy and adenoidectomy Social History Smoking Status: Never smoker how long ago did patient quit smokin alcohol intake: current alcohol intake frequency: holidays/special occasions only Alcohol type: wine substance use type: does not use caffeine: Yes Type: coffee Number of servings: 3 what type of physical activity do you participate in: none seatbelt use: always do you feel safe at home: Yes ROS ROS ED ROS Narrative Unable secondary to patient's overall mental status which is his baseline dementia. Review of Systems ROS Unobtainable: due to mental status EXAM Physical Exam Narrative Exam Narrative: 82-year-old male no acute distress vital signs stable afebrile. Temperature nine 9.4. H EENT exam unremarkable. Lungs are clear. Heart regular rhythm rate about 80 no murmur. Abdomen is soft and nontender. Nondistended normal bowel sounds no peritoneal signs. He currently has a Hunt catheter in place. There is blood at the urethral meatus. There is no urine or significant blood in the Hunt bag. Moving all 4 extremities. Nontender no edema. Neurologically is awake. His eyes are open. He answers questions but he is Const Vital Signs: 03/17/22 20:42 Temperature 99.4 F H Temperature Source Temporal Pulse Rate 84 Blood Pressure 156/71 H Blood Pressure Mean 99 Pulse Ox 92 Oxygen Delivery Method Room Air Positive well nourished and well developed; Negative for obese, cachectic, contractures or unkempt General Appearance ED: well developed and NAD; Negative for unkempt, cachectic, contractures or pallor Nutritional Appearance: Negative for cachectic or obese HEENT Reports moist mucous membranes normocephalic and atraumatic; Negative for trauma Eyes PERRL and EOMs intact bilaterally General Eye ED: Negative for pale conjunctiva or scleral icterus Neck no lymphadenopathy, supple and no JVD General: Negative for tenderness Resp normal respiratory effort and clear to auscultation bilaterally Auscultation: Negative for rales, rhonchi or wheezes Cardio regular rate, regular rhythm, S1 normal heart sound, S2 normal heart sound and no murmurs GI non-tender, non-distended and no masses Auscultation: normoactive bowel sounds; Negative for hyperactive bowel sounds or hypoactive bowel sounds Palpation: soft; Negative for hepatomegaly Rectal Exam: Negative for tenderness Penis: normal penis and circumcised; Negative for uncircumcised, condyloma, edematous or erythema Meatus: blood at meatus Back/Spine no CVA tenderness Psych mental status grossly normal Psych Narrative: Dementia Appearance: Negative for unkempt Attitude: No agitated Mood & Affect: Negative for depressed or tearful Skin General Skin Exam: Negative for jaundice or pallor Lesions: no lesions Rashes: no rashes MDM MDM MDM Narrative Medical decision making narrative: 82-year-old from a snf with dementia. An obstructed Hunt today. They were unsuccessful in replacing at the snf. He has less than 300 cc in his bladder. His blood to meatus. Our nurses will attempt to place a Hunt catheter. Urinalysis will be obtained. Repeat exam patient doing well at 11:30 PM. Nurse was able to place a 16 [place] Hunt catheter. UA appeared to be consistent with a UTI. Culture sent. Patient started on Cipro 500 twice daily for 10 days. First dose given in the ER. Lab Data Attestation: I reviewed the patient's lab results. Lab results narrative: Urinalysis shows cloudy urine negative nitrites but greater than 100 red cells, greater than white cells 4+ bacteria consistent with infection. Urine culture sent. Labs: Laboratory Results - last 24 hr 03/17/22 21:05 Urine Color Brown Urine Clarity Cloudy Urine pH 8.0 Ur Specific [place] 1.015 Urine Protein 100 H Urine Glucose (UA) Normal Urine Ketones 5 H Urine Occult Blood 250 H Urine Nitrite Negative Urine Bilirubin 1 H Urine Urobilinogen 1 H Ur Leukocyte Esterase 500 H Urine RBC > 100 SEEN Urine WBC >100 SEEN Ur Squamous Epith Cells 0 SEEN Urine Bacteria 4+ Urine Mucus 0 SEEN Discharge Plan Triage Chief Complaint: Hunt C/O ED Provider: Arnulfo Mcfarlane Dx/Rx/DC Orders Clinical Impression: Obstructed Hunt catheter, Urinary tract infection, History of atrial fibrillation, History of dementia Instructions: Urinary Tract Infections in Men, ED Hunt Catheter, Care Prescriptions: New ciprofloxacin HCl [Cipro] 500 mg tablet 500 mg PO BID 10 Days Qty: 20 RF: 0 No Action mirtazapine 30 mg tablet 30 mg PO QHS RF: 0 cholecalciferol (vitamin D3) 2,000 unit capsule 2,000 unit PO DAILY RF: 0 memantine 10 mg tablet 10 mg PO BID RF: 0 famotidine [Pepcid AC] 10 mg tablet 10 mg PO DAILY PRN (Reason: Indigestion) RF: 0 potassium chloride 20 mEq tablet extended release 20 meq PO DAILY RF: 0 cyanocobalamin (vitamin B-12) [Vitamin B-12] 1,000 mcg Tablet 1,000 mcg PO DAILY RF: 0 duloxetine 60 mg Capsule,Delayed Release(Dr/Ec) 60 mg PO DAILY RF: 0 metoprolol succinate 50 mg Tablet Extended Release 24 Hr 75 mg PO DAILY RF: 0 melatonin 3 mg Tablet 3 mg PO QHS RF: 0 Eliquis 5 mg tablet 5 mg PO BID RF: 0 acetaminophen 650 mg Suppository 650 mg CO Q4H PRN (Reason: Fever) RF: 0 lorazepam [Ativan] 0.5 mg Tablet 0.5 mg PO Q4H PRN PRN (Reason: Anxiety) RF: 0 morphine concentrate 10 mg/0.5 mL Solution 10 mg PO Q2H PRN PRN (Reason: Pain) RF: 0 (DME) compression stockings Knee High Qty: 2 RF: 0 amiodarone 200 mg tablet 200 mg PO DAILY Qty: 90 RF: 3 Primary Care Provider: Navneet Alvarado Referrals: Navneet Alvarado MD [Primary Care Provider] - As Needed Activity Restrictions/Additional Instructions: Hunt catheter was replaced. Urine appeared to be infected so the patient be started on Cipro the antibiotic 1 pill twice a day for 10 days. Follow-up with either his primary care physician or the adjunct faculty for medical terminology your facility to be reevaluated. Disposition Disposition: Home, Self Care
--- NOTE | 2022-03-17 21:12 | ED.RN ---
Patient had 16FR garcia catheter in place on arrival to ED. Noted blood leaking from around the catheter in place. Per orders, catheter was removed due to no output and uncertainty of patency. 18FR catheter placed without difficulty and 1200cc of urine drained initially with one clot noted.
[2022-03-17 21:34] LABS: Mucous, Urine 0 SEEN /hpf (<or=2+)
[2022-03-17 21:35] LABS: Color, Urine Brown (Yellow); Glucose, Dipstick Normal (Normal); Ketone-Dipstick 5 mg/dl (Negative); Leukocyte Esterase-Dipstick 500 /ul (Negative); Nitrite-Dipstick Negative (Negative); Occult Blood-Urine 250 /ul (Negative); Protein-Dipstick 100 mg/dl (Negative); Specific Gravity, Urine 1.015 (1.002-1.030); Urine Clarity Cloudy (Clear); Urine Urobilinogen 1 mg/dl (Normal)
[2022-03-17 21:44] LABS: Urine Bilirubin Dipstick 1 mg/dL (Negative)
[2022-03-17 21:45] LABS: Red Blood Cells-Urine > 100 SEEN /hpf (0-5); White Blood Cells >100 SEEN /hpf (0-5)
[2022-03-17 21:46] LABS: Bacteria 4+ /hpf (None Seen); Squamous Epithelial Cells - UA 0 SEEN /hpf (0-5)
[2022-03-17 23:39] VITALS: BP 114/63; PULSE 78; RESP 14; O2SAT 95
[2022-03-17] MEDS: Ciprofloxacin 500 MG Tablet PO (23:39)
--- NOTE | 2022-03-17 23:41 | ED.RN ---
CALLED FOR A RIDE WITH PHYSICIANS, THE ETA IS 2 HOURS I ASKED THEM TO OUTSOURCE THIS. THEY SAID WE WOULD TRY AND HUNG UP THE PHONE.
== END 2022-03-18 00:22 | disposition skilled nursing facility (03) ==
PROVIDERS: Emergency Provider Emergency Medicine; PCP Family Medicine; Visit Provider Emergency Medicine
DX: T83.091A Other mechanical complication of indwelling urethral catheter, initial encounter (principal); F03.90 Unspecified dementia, unspecified severity, without behavioral disturbance, psychotic disturbance, mood disturbance, and anxiety; I48.91 Unspecified atrial fibrillation; N39.0 Urinary tract infection, site not specified; X58.XXXA Exposure to other specified factors, initial encounter; I10 Essential (primary) hypertension; E78.5 Hyperlipidemia, unspecified; Z51.5 Encounter for palliative care; Z79.01 Long term (current) use of anticoagulants; Z79.899 Other long term (current) drug therapy; Z86.73 Personal history of transient ischemic attack (TIA), and cerebral infarction without residual deficits
CPT/HCPCS: 81001; 87077; 87086; 87088; 87186; 99285

== ENCOUNTER 2022-04-07 09:56 | Emergency (ER) | payer MEDICARE, SELFPAY ==
[2022-04-07 09:58] VITALS: BP 171/73; PULSE 67; RESP 17; TEMP 36.4; O2SAT 95; BMI 28.0
[2022-04-07 10:14] VITALS: BP 171/73; PULSE 64; RESP 14; TEMP 36.2; O2SAT 98; BMI 28.0
--- NOTE | 2022-04-07 10:17 | CT_ITS ---
STUDY: CT ABDOMEN AND PELVIS WITHOUT CONTRAST REASON FOR EXAM: Male, 82 years old. Poley catheter unable to be removed RADIATION DOSAGE (If Supplied By Facility): CTDIvol = ( 10.20 ) mGy, DLP = ( 652.86 ) mGycm TECHNIQUE: Transaxial images were obtained from the dome of the diaphragm to the symphysis pubis without oral contrast, and without intravenous contrast. Sagittal and coronal images were reconstructed. Individualized dose optimization techniques were used for this CT. COMPARISON: None. FINDINGS: There is consolidation within the right lower lobe and to lesser extent within the lingula associated with bibasilar groundglass opacities. There are coronary artery desiccation. The lack of intravenous contrast limits evaluation of solid visceral organs. Normal liver. Normal gallbladder and extrahepatic biliary system. Normal spleen. Normal pancreas. Normal bilateral adrenal glands. Normal right kidney. Normal left kidney. Normal visualized stomach. Normal small intestine. There is a moderate amount of stool throughout the colon and rectum associated with rectal distention. There is circumferential wall thickening of the distal rectum and anus. The appendix is visualized and appears normal. There is diffuse atherosclerotic calcification of the abdominal aorta, without a demonstrated aneurysm. Normal inferior vena cava. Normal retroperitoneum. There is fluid within the urinary bladder. There are foci of air within the urinary bladder likely secondary to prior instrumentation.. There is a Hunt catheter in place with a partially distended balloon within the membranous urethra. There is a 3 mm calculus within the posterior urinary bladder right of midline. There are additional few calcifications within the bladder wall. The prostate gland is enlarged. Normal abdominal wall. There are diffuse degenerative changes of the visualized lumbar spine. There is a grade 1 anterior spondylolisthesis of L4 on L5. CT/Abdomen/Pelvis without Cont IMPRESSION: Hunt catheter in place with a partially distended balloon within the membranous urethra. Enlarged prostate gland. Moderate amount of stool throughout the colon and rectum. Circumferential wall thickening of the distal rectum and anus may be secondary to edema. Consolidation within the right lower lobe and lingula associated bibasilar groundglass opacities may be secondary to an infectious process and/or edema. Atherosclerosis. Electronically Signed: Mel Horn MD at 10:48 EDT ,
--- NOTE | 2022-04-07 10:18 | EDS_ITS ---
HPI History of Present Illness Chief Complaint: Hunt C/O Detail of Chief Complaint: Hunt catheter unable to be removed Informant: EMS and SNF Narrative Narrative: Patient presents to the emergency department with a Hunt catheter that is unable to be removed. My understanding that they attempted to remove and replace the catheter at the [place] and they were unable to deflate the balloon. They cut the balloon port and still unable to get the balloon to release. Patient was sent to the emergency department. Nursing staff attempted to cut the catheter and manipulate the Hunt but they are unable to push it forward or remove it because of resistance. Patient denies abdominal pain. Patient is a poor historian as he does have history of dementia. Prior similar symptoms: No PFSH [facility] Medical History Atrial fibrillation Body mass index (bmi) 29.0-29.9, adult Bradycardia Depression Essential (primary) hypertension Hyperlipidemia Hypertension Hyperthyroidism Obesity Persistent atrial fibrillation Right ventricular dilation, secondary Right ventricular systolic dysfunction Syncope TIA (transient ischemic attack) Vascular dementia Home Medications mirtazapine 30 mg tablet 30 mg PO QHS 12/15/17 [History Last Taken Unknown] compression stockings #2 ea 04/16/19 [Rx Last Taken Unknown] amiodarone 200 mg tablet 200 mg PO DAILY #90 tabs 10/11/21 [Rx Last Taken Unknown] duloxetine 60 mg capsule,delayed release 60 mg PO DAILY 02/14/22 [History Last Taken Unknown] melatonin 3 mg tablet 6 mg PO QHS 03/10/22 [History Last Taken Unknown] metoprolol succinate 50 mg tablet,extended release 24 hr 25 mg PO DAILY 03/10/22 [History Last Taken Unknown] acetaminophen 650 mg rectal suppository 650 mg SC Q4H PRN Fever 03/17/22 [History Last Taken Unknown] lorazepam 0.5 mg tablet (Ativan) 0.5 mg PO Q4H PRN PRN Anxiety 03/17/22 [History Last Taken Unknown] morphine concentrate 10 mg/0.5 mL oral solution 10 mg PO Q2H PRN PRN Pain 03/17/22 [History Last Taken Unknown] acetaminophen 325 mg capsule 650 mg PO Q4H PRN pain/fever 04/07/22 [History Last Taken Unknown] aluminum-magnesium hydroxide 225 mg-200 mg/5 mL oral suspension 30 ml PO Q4H PRN PRN gerd 04/07/22 [History Last Taken Unknown] bisacodyl 10 mg rectal suppository 10 mg SC DAILY PRN Constipation 04/07/22 [History Last Taken Unknown] guaifenesin 200 mg/5 mL oral liquid 400 mg PO Q4H PRN Cough 04/07/22 [History Last Taken Unknown] hyoscyamine sulfate 0.125 mg tablet (Levsin) 0.125 mg PO Q4H PRN PRN excessive excretions 04/07/22 [History Last Taken Unknown] magnesium hydroxide 400 mg/5 mL oral suspension (Milk of Magnesia) 30 ml PO DAILY PRN Constipation 04/07/22 [History Last Taken Unknown] nystatin 100,000 unit/gram topical powder 1 applic topical BID 04/07/22 [History Last Taken Unknown] quetiapine 25 mg tablet (Seroquel) 12.5 mg PO QHS 04/07/22 [History Last Taken Unknown] sennosides 8.6 mg capsule (senna) 8.6 mg PO QHS 04/07/22 [History Last Taken Unknown] sodium phosphates 19 gram-7 gram/118 mL enema (Fleet Enema) 118 ml SC DAILY PRN Constipation 04/07/22 [History Last Taken Unknown] tamsulosin 0.4 mg capsule 0.4 mg PO QHS 04/07/22 [History Last Taken Unknown] Allergy/AdvReac Type Severity Reaction Status Date / Time amiodarone Allergy PT UNSURE Verified 04/07/22 09:57 OF REACTION Family History Mother Diabetes CVA (cerebral vascular accident) Father Myocardial infarction CAD (coronary artery disease) Sister Diabetes Son Hypertension Daughter Thyroid disorder hyperthyroid Diabetes Daughter Diabetes Daughter Thyroid disorder hypothyroid Surgical History History of hemorrhoidectomy History of tonsillectomy and adenoidectomy Social History Smoking Status: Never smoker how long ago did patient quit smokin alcohol intake: current alcohol intake frequency: holidays/special occasions only Alcohol type: wine substance use type: does not use caffeine: Yes Type: coffee Number of servings: 3 what type of physical activity do you participate in: none seatbelt use: always do you feel safe at home: Yes ROS ROS ED Review of Systems ROS Unobtainable: other Constitutional Constitutional ED: Reports lethargy; Denies chills, fever(s), sweats or weight loss Eyes Eyes: Denies blurry vision, change in vision or diplopia ENT ENT ED: Denies rhinorrhea or sore throat Cardiovascular Cardiovascular: Reports chest pain and racing heartbeat; Denies orthopnea Respiratory/Chest Respiratory/Chest: Reports dyspnea and dyspnea on exertion; Denies cough, orthopnea or sputum Gastrointestinal Gastrointestinal: Denies abdominal pain, diarrhea, nausea or vomiting Genitourinary Genitourinary ED: Reports other Details: Hunt catheter problem ; Denies dysuria, hematuria or urinary frequency Musculoskeletal Musculoskeletal: Denies arthralgias, back pain, myalgias or neck pain Integumentary Denies abscess, Abrasions or rash Neurologic Neurologic: Denies headache(s) or weakness Psychiatric Psychiatric: Denies anxiety, depression or suicidal thoughts Endocrine Endocrinology: Denies polydipsia, polyphagia or polyuria Hematologic/Lymphatic Hematologic/Lymphatic: Denies easy bleeding, easy bruising or lymphadenopathy Allergic/Immunologic Allergic/Immunologic ED: Denies mouth swelling, tongue swelling or urticaria EXAM Physical Exam Const Vital Signs: 04/07/22 09:58 04/07/22 10:14 04/07/22 11:53 Temperature 97.5 F L 97.2 F L Temperature Source Temporal Temporal Pulse Rate 67 64 76 Respiratory Rate 17 14 16 Blood Pressure 171/73 H 171/73 H 151/74 H Blood Pressure Mean 105 105 99 Pulse Ox 95 98 100 Oxygen Delivery Method Room Air Room Air Nasal Cannula Oxygen Flow Rate (L/min) 2 Positive well nourished and well developed General Appearance ED: well developed and NAD HEENT Reports TM's clear and moist mucous membranes normocephalic and atraumatic; Negative for trauma or tenderness Tympanic Membrane ED: Yes TM's clear Eyes PERRL and EOMs intact bilaterally General Eye ED: Negative for pale conjunctiva or scleral icterus Neck no lymphadenopathy, supple and no JVD General: Negative for tenderness Chest Wall inspection of chest normal and palpation of chest normal Chest: Negative for tenderness Resp normal respiratory effort and clear to auscultation bilaterally Effort and Inspection: Negative for respiratory distress or pain with movement Auscultation: Negative for rhonchi, wheezes or diminished lung sounds Cardio regular rate, regular rhythm, S1 normal heart sound, S2 normal heart sound and no murmurs Peripheral Pulses: pulses 2+ throughout GI normal to inspection, nondistended, normoactive bowel sounds, soft to palpation, non-tender, non-distended and no masses Narrative: Patient has a Hunt catheter from the urethral meatus that has had the tubing cut. I am unable to advance or remove the catheter. Back/Spine no CVA tenderness and no thoracic nor lumbar tenderness Extremity normal to inspection General Extremety ED: Negative for edema General Extremity: Negative for edema Neuro oriented x3, CN's II-XII intact bilaterally, no sensory deficits noted and gait normal Sensorium / Orientation: awake, alert, oriented to person, oriented to place and oriented to time Motor Exam: strength 5/5 throughout and strength abnormal Psych mental status grossly normal Skin no rashes or lesions noted and no wounds MDM MDM MDM Narrative Medical decision making narrative: Patient had a CT scan of the abdomen pelvis that showed the Hunt catheter to be within the membranous portion of the urethra with the balloon dilated. I attempted to use a guidewire into the balloon port to relieve any type of obstruction and this was unsuccessful. Basic labs were unremarkable. I discussed case with urologist at [facility] who accepted transfer of patient to their emergency department for evaluation. We do not have urology available here at [place] today. Patient was somewhat agitated therefore he did receive Geodon 10 mg IM as well as morphine 4 mg IV and Zofran 4 mg IV. Lab Data Attestation: I reviewed the patient's lab results. Labs: Laboratory Results - last 24 hr 04/07/22 04/07/22 11:40 11:40 WBC 7.6 RBC 4.34 L Hgb 13.5 Hct 42.2 MCV 97.2 H MCH 31.1 MCHC 32.0 RDW Std Deviation 50.4 H RDW Coeff of Monica 14.0 Plt Count 204 MPV 9.5 Immature Gran % (Auto) 0.400 Neut % (Auto) 78.9 H Lymph % (Auto) 8.0 L Morehouse % (Auto) 9.5 Eos % (Auto) 2.8 Baso % (Auto) 0.4 Absolute Neuts (auto) 6.0 Absolute Lymphs (auto) 0.61 L Nucleated RBC % 0 Sodium 142 Potassium 4.3 Chloride 104 Carbon Dioxide 29.0 Anion Gap 9 BUN 13 Creatinine 0.90 Estim Creat Clear Calc 59.11 Est GFR (MDRD) Af Amer 103 Est GFR (MDRD) Non-Af 85 BUN/Creatinine Ratio 14.4 Glucose 104 Calcium 9.0 Radiography Diagnostic Testing: Clinical Impression(s) from Imaging Studies Abdomen/Pelvis CT 04/07/22 10:17 IMPRESSION: Hunt catheter in place with a partially distended balloon within the membranous urethra. Enlarged prostate gland. Moderate amount of stool throughout the colon and rectum. Circumferential wall thickening of the distal rectum and anus may be secondary to edema. Consolidation within the right lower lobe and lingula associated bibasilar groundglass opacities may be secondary to an infectious process and/or edema. Atherosclerosis. Electronically Signed: Mel Horn MD at 10:48 EDT Reading Location ID and State: [facility] / [place] Tel , Service support , Discharge Plan Triage Chief Complaint: Hnut C/O ED Provider: Brian Domínguez Dx/Rx/DC Orders Clinical Impression: Hunt catheter problem, Retained foreign body Prescriptions: No Action mirtazapine 30 mg tablet 30 mg PO QHS duloxetine 60 mg Capsule,Delayed Release(Dr/Ec) 60 mg PO DAILY metoprolol succinate 50 mg Tablet Extended Release 24 Hr 25 mg PO DAILY melatonin 3 mg Tablet 6 mg PO QHS acetaminophen 650 mg Suppository 650 mg SC Q4H PRN (Reason: Fever) lorazepam [Ativan] 0.5 mg Tablet 0.5 mg PO Q4H PRN PRN (Reason: Anxiety) morphine concentrate 10 mg/0.5 mL Solution 10 mg PO Q2H PRN PRN (Reason: Pain) quetiapine [Seroquel] 25 mg Tablet 12.5 mg PO QHS magnesium hydroxide [Milk of Magnesia] 400 mg/5 mL Suspension 30 ml PO DAILY PRN (Reason: Constipation) tamsulosin 0.4 mg Capsule 0.4 mg PO QHS bisacodyl 10 mg Suppository 10 mg SC DAILY PRN (Reason: Constipation) hyoscyamine sulfate [Levsin] 0.125 mg Tablet 0.125 mg PO Q4H PRN PRN (Reason: excessive excretions) Antacid 225-200 mg/5 mL Suspension 30 ml PO Q4H PRN PRN (Reason: gerd) Fleet Enema 19-7 gram/118 mL Enema 118 ml SC DAILY PRN (Reason: Constipation) nystatin 100,000 unit/gram Powder 1 applic TOPICAL BID guaifenesin 200 mg/5 mL Liquid 400 mg PO Q4H PRN (Reason: Cough) senna 8.6 mg Capsule 8.6 mg PO QHS acetaminophen 325 mg Capsule 650 mg PO Q4H PRN (Reason: pain/fever) (DME) compression stockings Knee High Qty: 2 0RF Rx Instructions: 15-20* mmHg Ready to wear amiodarone 200 mg tablet 200 mg PO DAILY Qty: 90 3RF Primary Care Provider: Rose Sanchez Referrals: Rose Sanchez MD [Primary Care Provider] - Disposition Disposition: DC/Tx to Another Type of HCF
[2022-04-07] MEDS: Ziprasidone IM 20 MG/ML VIAL 10 MG IM (11:28)
[2022-04-07] MEDS: Ondansetron 4 MG/2 ML Vial IV (11:43)
[2022-04-07] MEDS: Morphine 4 MG/ML Syringe IV (11:43)
[2022-04-07 11:48] LABS: Absolute Lymphocyte Count 0.61 X10^3/uL (0.83-4.51); Basophil# 0.03 X10^3/uL; Basophil% 0.4 % (0-1); Eosinophil# 0.21 X10^3/uL; Eosinophils% 2.8 % (0-5); Hematocrit 42.2 % (40-54); Hemoglobin 13.5 g/dL (13.0-16.5); Lymphocyte # 0.61 X10^3/ul (0.83-4.51); Mean Corpuscular Hgb 31.1 pg (27.0-32.0); Mean Corpuscular Volume 97.2 fL (80-94); Mean Platelet Vol. 9.5 fl (6.2-12.0); Monocyte# 0.72 X10^3/uL; Monocyte% 9.5 % (0-10); NRBC Flagged by Analyzer 0 % (0-5); Neutrophil # 6.01 X10^3/uL (2.7-7.7); Neutrophil % 78.9 % (47-70); Platelet Count 204 K/mm3 (150-450); RBC Distribution Width SD 50.4 fl (35.1-43.9); Red Blood Count 4.34 M/mm3 (4.6-6.2); White Blood Count 7.6 K/mm3 (4.4-11.0)
[2022-04-07 11:53] VITALS: BP 151/74; PULSE 76; RESP 16; O2SAT 100
[2022-04-07 11:59] LABS: Anion Gap 9 (5-15); BUN 13 mg/dL (7-18); BUN/Creat Ratio 14.4 RATIO (10-20); Chloride 104 mmol/L (98-107); EST Glomerular Filtration Rate 85 mL/min (>60); Est Glom Filt Rate - Afr Amer 103 mL/min (>60); Estimated Creatinine Clearance 59.11 ml/min; Glucose 104 mg/dL (74-106); Potassium 4.3 mmol/L (3.5-5.1); Sodium Level 142 mmol/L (136-145)
== END 2022-04-07 12:21 | disposition short-term general hospital (02) ==
PROVIDERS: Emergency Provider Emergency Medicine; PCP Internal Medicine; Visit Provider Emergency Medicine
DX: T83.89XA Other specified complication of genitourinary prosthetic devices, implants and grafts, initial encounter (principal); F01.50 Vascular dementia, unspecified severity, without behavioral disturbance, psychotic disturbance, mood disturbance, and anxiety; I48.19 Other persistent atrial fibrillation; X58.XXXA Exposure to other specified factors, initial encounter; Y92.129 Unspecified place in nursing home as the place of occurrence of the external cause; I10 Essential (primary) hypertension; F32.A Depression, unspecified; E78.5 Hyperlipidemia, unspecified; E66.9 Obesity, unspecified; Z68.28 Body mass index [BMI] 28.0-28.9, adult; Z79.899 Other long term (current) drug therapy; Z86.73 Personal history of transient ischemic attack (TIA), and cerebral infarction without residual deficits
CPT/HCPCS: 74176; 80048; 85025; 96372; 96374; 96375; 99285; A4216; J2405; J3486